=== PATIENT | male | born 1945 | race Caucasian/White ===

== ENCOUNTER 2018-06-03 22:55 | Inpatient (IN) ==
[2018-06-03] MEDS ORDERED: Heparin 10,000 UNITS/10 ML Vial (for IV use) IV.PUSH STA (23:03)
[2018-06-03] MEDS ORDERED: Sod Chloride 0.9% Inj 1,000 ML IV.SIG SCH (23:15)
[2018-06-03 23:19] LABS: Baso # (Auto) 0.1 th/mm3 (0.0-0.2); Baso % (Auto) 0.7 % (0.0-2.0); Eos # (Auto) 0.2 th/mm3 (0.0-0.4); Hematocrit 43.3 % (39.0-51.0); Hemoglobin 14.6 gm/dL (13.0-17.0); Lymph # (Auto) 3.5 th/mm3 (1.0-4.8); Lymph % (Auto) 40.3 % (9.0-44.0); Mean Corpuscular HGB Conc 33.8 % (32.0-36.0); Mean Corpuscular Hemoglobin 33.1 pg (27.0-34.0); Mean Corpuscular Volume 97.9 fL (80.0-100.0); Mean Platelet Volume 7.8 fL (7.0-11.0); Mono % (Auto) 11.5 % (0.0-8.0); Neut % (Auto) 45.5 % (16.0-70.0); Platelet Count 347 th/mm3 (150-450); Red Blood Count 4.42 mil/mm3 (4.50-5.90); Red Cell Distribution Width 14.2 % (11.6-17.2); White Blood Count 8.7 th/mm3 (4.0-11.0)
[2018-06-03] MEDS ORDERED: DOBUTAMINE 250 MG/20 ML IV.CONT ONE (23:19)
--- NOTE | 2018-06-03 23:25 | XR ---
EXAM DATE: 06/03/2018 11:21 PM EDT AGE/SEX: 72 years / Male INDICATIONS: Stemi alert CLINICAL DATA: This is the patient's initial encounter. Patient reports that signs and symptoms have been present for 1 day and indicates a pain score of Nonresponsive. MEDICAL/SURGICAL HISTORY: Non-responsive. Non-responsive. COMPARISON: No prior exams available for comparison. FINDINGS: A single AP view of the chest demonstrates the lungs to be symmetrically aerated without evidence of mass, infiltrate or effusion. The heart is normal size. Central bronchopulmonary markings are not eng orged.. Osseous structures are intact. CONCLUSION: The lungs are clear. Electronically signed by: Donnell Dale MD 06/03/2018 11:23 PM EDT
[2018-06-03] MEDS: Heparin Drip 25,000 UNIT/250 ML BAG IV.CONT PRN (23:27)
[2018-06-03] MEDS: DOBUTamine 250 MG/250 ML Premx 250 MG/250 ML BAG IV.CONT SCH (23:27)
[2018-06-03 23:28] LABS: Activated Partial Thrombo Time 23.1 sec (24.3-30.1); Prothrombin Time 10.1 sec (9.8-11.6)
[2018-06-03] MEDS ORDERED: Morphine Sulfate Inj 2 MG/ML Vial IV.PUSH ONE (23:32)
--- NOTE | 2018-06-03 23:38 | ED ---
HPI General Chief Complaint: Chest Pain Stated Complaint: Evac/cardiac Arrest Time Seen by Provider: 06/03/18 23:06 Source: patient and EMS Mode of arrival: EMS Limitations: altered mental status History of Present Illness HPI narrative: 72-year-old male patient presents to the ER today with complaints of substernal chest pains currently a 9 out of 10, apparently had called the ambulance because of the chest pain, was initially found to have V1 and V2 elevations, and initially was going to be called a STEMI alert but then the elevations were not initially impressive, and he was given aspirin. While he was on the ambulance, he went to V. fib arrest, had defibrillation done and became alert and had return of spontaneous vital signs and respirations, and refused to get intubated by EMS. He is currently awake and states that he is still having chest pains. He denies any significant medical issues in the past. He denies being on any blood thinners. A repeat EKG in the ER shows ST elevations in the anterolateral leads as well as depressions in the inferior leads. Case was discussed with Dr. Tim who agrees to take him to catheterization. STEMI alert had been called. Complete Quality Measures for STEMI Alert Patients Related Data Home Medications Medication Instructions Recorded Confirmed No Known Home Medications 06/03/18 06/03/18 Allergies Allergy/AdvReac Type Severity Reaction Status Date / Time No Known Allergies Allergy Unverified 06/03/18 23:03 Review of Systems ROS: all other systems reviewed are negative PMFSH History History Provided By: Patient Medical History Medical History Patient denies medical problems (Acute) Surgical History Surgical History No history of previous surgery (Acute) Exam Narrative Exam Narrative: GENERAL: Well-developed elderly white male patient currently in moderate distress. Awake and oriented 3. SKIN: Focused skin assessment warm/diaphoretic. HEAD: Atraumatic. Normocephalic. EYES: Pupils equal and round. No scleral icterus. No injection or drainage. ENT: No nasal bleeding or discharge. Mucous membranes pink and moist. NECK: Trachea midline. No JVD. CARDIOVASCULAR: Regular rate and rhythm. No murmur appreciated. Pulses are present and equal bilaterally. RESPIRATORY: No accessory muscle use. Clear to auscultation. Breath sounds equal bilaterally. GASTROINTESTINAL: Abdomen soft, non-tender, nondistended. Hepatic and splenic margins not palpable. MUSCULOSKELETAL: No obvious deformities. No clubbing. No cyanosis. No edema. NEUROLOGICAL: Awake and alert. No obvious cranial nerve deficits. Motor grossly within normal limits. Normal speech. PSYCHIATRIC: Appropriate mood and affect; insight and judgment normal. Course Initial Documented Vital Signs Temperature 98.0 F 06/03/18 23:00 Pulse Rate 96 H 06/03/18 23:00 Respiratory Rate 18 06/03/18 23:00 Blood Pressure 84/56 L 06/03/18 23:00 Pulse Oximetry 99 06/03/18 23:00 Last Documented Vital Signs Temperature 98.0 F 06/03/18 23:00 Pulse Rate 96 H 06/03/18 23:00 Respiratory Rate 18 06/03/18 23:00 Blood Pressure 84/56 L 06/03/18 23:00 Pulse Oximetry 98 06/03/18 23:15 Medical Decision Making MDM Narrative Medical decision making narrative: Patient's blood pressure was fairly low in the ER at 2 L IV fluid bolus was given. His blood pressure remained low after the 2 L boluses and dobutamine was given in the ER. Heparin protocol had been initiated and STEMI protocol had been initiated. Case has been discussed with Dr. Tim and case has been admitted to his service, Dr. Almendarez is planning for catheterization. I have discussed CODE STATUS with the patient and he agrees to be full code. I have also discussed the findings and current diagnosis with patient's who states understanding. Aggregate critical care time was 35 minutes. Time to perform other separately billable procedures was not included in the critical care time. My time did not include minutes spent treating any other patients simultaneously or on activities that did not directly contribute to the patient's treatment. The services I provided to this patient were to treat and/or prevent clinically significant deterioration that could result in: Cardiopulmonary arrest, V. fib arrest, I provided critical care services requiring my management, as noted below: Chart data review, documentation time, medication orders and management, vital sign assessments/reviewing monitor data, ordering and reviewing lab tests, ordering and interpreting/reviewing x-rays and diagnostic studies, care of the patient and discussion of the patient with the admitting physicians. Medical Screen Exam Complete: Yes Emergency Medical Condition: Yes Differential Diagnosis Differential Diagnosis: STEMI versus dysrhythmias versus electrolyte abnormalities Lab Data Result diagrams: 06/03/18 23:00 Lab Results 06/03/18 06/03/18 06/03/18 Range/Units 23:00 23:00 23:00 WBC 8.7 (4.0-11.0) th/mm3 RBC 4.42 L (4.50-5.90) mil/mm3 Hgb 14.6 (13.0-17.0) gm/dL POC Hgb (Calc) 14.3 (13.0-17.0) g/dL Hct 43.3 (39.0-51.0) % POC Hct 42.0 (39-51.0) % MCV 97.9 (80.0-100.0) fL MCH 33.1 (27.0-34.0) pg MCHC 33.8 (32.0-36.0) % RDW 14.2 (11.6-17.2) % Plt Count 347 (150-450) th/mm3 MPV 7.8 (7.0-11.0) fL Neut % (Auto) 45.5 (16.0-70.0) % Lymph % (Auto) 40.3 (9.0-44.0) % Hitchcock % (Auto) 11.5 H (0.0-8.0) % Eos % (Auto) 2.0 (0.0-4.0) % Baso % (Auto) 0.7 (0.0-2.0) % Neut # (Auto) 4.0 (1.8-7.7) th/mm3 Lymph # (Auto) 3.5 (1.0-4.8) th/mm3 Hitchcock # (Auto) 1.0 H (0.0-0.9) th/mm3 Eos # (Auto) 0.2 (0.0-0.4) th/mm3 Baso # (Auto) 0.1 (0.0-0.2) th/mm3 WBC Differential . Differential Comment Auto diff final PT 10.1 (9.8-11.6) sec INR 1.0 Ratio APTT 23.1 L (24.3-30.1) sec POC Sodium 140 (137-144) mmol/L POC Potassium 3.0 L (3.6-5.0) mmol/L POC Chloride 103 (102-111) mmol/L POC BUN 17 (5-21) mg/dL POC Creatinine 1.3 (0.6-1.3) mg/dL POC Glucose 167 H (68-110) mg/dL Calcium 8.8 (8.5-10.1) mg/dL Magnesium 2.2 (1.5-2.5) mg/dL Total Creatine Kinase 105 (39-308) U/L Troponin I 0.21 H (0.02-0.05) ng/mL Imaging Data Radiologist's impression: Chest X-Ray 06/03/18 23:04 CONCLUSION: The lungs are clear. Discharge Plan Discharge Disposition Patient Disposition: 30 Still Patient Discharge Condition Condition: Critical Discharge Details Anticipated Discharge Date: 06/03/[address]: [address] elevation myocardial infarction (STEMI) Physicians Team ED Provider: Robert Ferrari Primary Care Provider: UNKNOWN, Attending Provider: Brayden Tim Status ED Status: Admitted Patient
[2018-06-03 23:42] LABS: Calcium 8.8 mg/dL (8.5-10.1); Magnesium 2.2 mg/dL (1.5-2.5)
[2018-06-03] MEDS ORDERED: Heparin/NS PF Inj 1,000 ML ONE (23:43)
[2018-06-03 23:45] LABS: Creatine Kinase 105 U/L (39-308); Troponin I 0.21 ng/mL (0.02-0.05)
[2018-06-03] MEDS ORDERED: Iohexol 350 MG/ML 100 ML Vial (for Cath Lab) IVCONTRAST ONE (23:52)
[2018-06-03] MEDS ORDERED: Iohexol 350 MG/ML 50 ML Vial (for Cath Lab) IVCONTRAST ONE (23:52)
[2018-06-03 23:57] LABS: Creatine Kinase MB 2.6 ng/mL (0.5-3.6)
[2018-06-03] MEDS ORDERED: Potassium Chlor 10 mEq Premix 10 MEQ/100 ML PIGGYBACK IV.SIG ONE (23:58)
[2018-06-03] MEDS ORDERED: DOPamine 800 MG/500 ML Premix 800 MG/500 ML PLAST..BAG IV.CONT ONE (23:59)
[2018-06-04] MEDS ORDERED: Heparin Drip 25,000 UNIT/250 ML BAG IV.CONT ONE (00:17)
--- NOTE | 2018-06-04 00:57 | CATHPROC ---
[employer] HIS Report Study Information Study Number Admission Scheduled Start Study Start [id number] Jun 03 2018 10:55PM 06/03/2018 Jun 03 2018 11:35PM [facility]iac Catheterization Admit Source Facility Department Emergency department [facility] - Manufacture Specialist Physician and Clinical Staff Initial Brayden Cheung [place] Operator Serg Pillai,RN [place] Operator Kate Clifton,JENNI Recorder Leora Green,RT(R) Scrub Blair ValdovinosRT(R) Procedures Performed Procedure Location (Site) Vessel Name Angiogram LV LV Ventricle Coronary Angiograms LCA Left Coronary Coronary Angiograms RCA Right Coronary IABP Fem Art (right) Femoral Art L Heart Cath Equipment Time Anatomy Teacher Description Size Mfg Part Number Used/Scraped TRANSDUCER, TRVERNON [id number] 23:42 Oree * Used W/STOCKCOCK *[id number] *[id number] [id number] *[id number] [id number] *[id number] BALLOON, FR8 50CC SENSATION [id number] 00:15 MAQUET FR 8 50CC Used PLUS 01U *[id number] 23:42 [employer] BLANKET,WARM AIR CCL * Used *[id number] 23:42 [employer] PACK, CCL CUSTOM * Used *[id number] 23:42 [employer] PACER PEN, SKIN DUAL W/ RULER * Used *[id number] 23:42 [employer] MEDICAL SHEATH, FR6.5 PRELUDE 11CM FR 6.5 038ACT Used *[id number]- 00:21 [employer] MEDICAL SHEATH, FR6.5 PRELUDE 11CM FR 6.5 038ACT Used *[id number] 23:42 [employer] MEDICAL WIRE, 3MMJ .035 180CM 180CM Used *[id number] 23:42 NAMIC MANIFOLD, 4 PORT * Used *[id number] 23:42 [employer] OMNIPAQUE, 350 MG, 150ML 150ML [id number] Used 00:23 [employer] OMNIPAQUE, 350 MG, 50ML 50ML [id number] Used History: Allergies Allergy Reaction No Known Allergies History: Symptoms/Diagnosis Selection Items Chest pain History: Stress Tests Stress or Imaging Studies Performed No Labs Hgb (g/dl) Hct (%) WBC (l/cumm) Platelets (thousands) 11.60-17.00 35.00-51.00 4.00-11.00 150.00-450.00 14.6 43.3 8.7 347 Glucose (mg/dl) BUN (mg/dl) Creatinine (mg/dl) BUN:Creatinine (1:x) 74.00-106.00 7.00-18.00 0.50-1.30 10.00-20.00 167 17 1.3 13.1 Na (meq/l) K (meq/l) 136.00-145.00 3.50-5.10 140 3 INR (PTT:PT) 0.90-1.10 1 Medication Medication Total Dose (Bolus/Oral) Medication Total Dosage/Unit 1% XYLOCAINE 40 mL AMIODARONE 150 mg HEPARIN 5000 units POTASSIUM CHLORIDE 40 meq ZOFRAN 8 mg Medications (Bolus/Oral) Medication Time Given Dosage/Unit Administered By Reason ZOFRAN 06/03/2018 11:57:00 PM 4 mg HesKate izaguirre 4 mg ZOFRAN given in lab by Kate Clifton RN in Left Antecubital via Central IV. Ordered by Brayden Tim. 1% XYLOCAINE 06/04/2018 12:04:09 AM 20 mL Brayden Tim 20 mL 1% XYLOCAINE given in lab by Brayden Tim in Right Groin via Subcutaneous. POTASSIUM CHLORIDE 06/04/2018 12:10:19 AM 40 meq Kate Clifton 40 meq POTASSIUM CHLORIDE given in lab by Kate Clifton, JENNI in Left Antecubital via Peripheral IV. O rdered by Brayden Tim. HEPARIN 06/04/2018 12:16:11 AM 5000 units Kate Clifton 5000 units HEPARIN given in lab by Kate Clifton, JENNI in Left Antecubital via Peripheral IV. Ordered by Brayden Tim. ZOFRAN 06/04/2018 12:18:07 AM 4 mg Hes, Kate 4 mg ZOFRAN given in lab by Kate Clifton, JENNI in Left Antecubital via Central IV. Ordered by Brayden Tim. 1% XYLOCAINE 06/04/2018 12:18:31 AM 20 mL Brayden Tim 20 mL 1% XYLOCAINE given in lab by Brayden Tim in Left Groin via Subcutaneous. AMIODARONE 06/04/2018 12:24:18 AM 150 mg Kate Clifton 150 mg AMIODARONE given in lab by Kate Clifton, JENNI in Left Antecubital via Peripheral IV. Ordered b Brayden Mckinney. Medication (Drip) Medication Time Given Dosage/Unit Concentration/Unit Diluent (ml) Solution DOBUTAMINE 06/03/2018 11:55:36 PM 10 mcg/kg/min 500 mg 250 D5W Patient arrived on 10 mcg/kg/min DOBUTAMINE in Right Forearm via Peripheral IV. Pump/Drip Flow = 21.7 5 ml/hr using D5W with a concentration of 500 mg in 250 ml. HEPARIN DRIP 06/04/2018 12:25:39 AM 1000 units/hr 36426 units 250 D5W 1000 units/hr HEPARIN DRIP given in lab by Kate Clifton, JENNI in Left Antecubital via Peripheral IV. Pump/Drip Flow = 10 ml/hr [place] D5[place] [address] units in 250 ml. Ordered by Brayden Tim. IV Solutions 06/03/2018 11:53:37 PM 50 mL (IV) NaCl .9 Patient arrived on IV Solutions in Left Antecubital via Peripheral IV. Pump/Drip Flow using NaCl .9. POTASSIUM DRIP 06/04/2018 12:38:45 AM 5 meq/hr 10 meq 100 D5W .9 NaCl 5 meq/hr POTASSIUM DRIP given in lab by Kate Clifton, JENNI in Right Forearm via Peripheral IV. Pump/D rip Flow = 50 ml/hr using D5W .9 NaCl with a concentration of 10 meq in 100 ml. Ordered by Brayden Tim. Chronological Log Time Study Chronological Log 23:40:56 Emergency Room notified that Manufacture Specialist is ready. 23:49:28 MD arrived. 23:52:16 Patient arrived via Bed. 23:53:22 Patient Name, D.O.B, / Armband Verified By R.N. 23:53:23 Consent signed by the physician and the patient and verified by the Manufacture Specialist staff. 23:53:31 Patient Warmer Placed on the Table. 23:53:33 Disposable Defibrillator Pads Placed On Patient. 23:53:33 Rito Prominences Protected 23:53:35 A # ~SIZE~ IV was noted in the Forearm (right). Grade = ~GRADE~ 23:53:36 A # ~SIZE~ IV was noted in the Antecubital (left). Grade = ~GRADE~ 23:53:37 Patient arrived on IV Solutions in Left Antecubital via Peripheral IV. Pump/Drip Flow usi ng NaCl .9. 23:53:38 History and physical on the chart or being dictated. Patient arrived on 10 mcg/kg/min DOBUTAMINE in Right Forearm via Peripheral IV. Pump/Drip Jose w = 21.75 ml/hr 23:55:36 using D5W with a concentration of 500 mg in 250 ml. Vitals capture started with the following parameters, Patient=Adult, Interval=3 min, Initial Watcjwgo=180 mmHg, 23:56:11 Deflation Rate=5 mmHg, Cuff placed on Left Arm 23:57:00 4 mg ZOFRAN given in lab by Kate Clifton, JENNI in Left Antecubital via Central IV. Ordere d by Brayden Tim. 23:57:29 ZB=728 bpm, NIBP=93/58 mmhg, SpO2=97.0 %, Resp=17 B/min 23:59:40 HR=90 bpm, NIBP=93/57 mmhg, PqD0=176.0 %, Resp=18 B/min 0:00:20 Reference ECG taken 0:01:47 Reference ECG taken 0:02:41 RP=420 bpm, NIBP=90/56 mmhg, TlT5=620.0 %, Resp=18 B/min 0:03:37 Pressure channel 1 zeroed. 0:04:07 Case Start 0:04:09 20 mL 1% XYLOCAINE given in lab by Brayden Tim in Right Groin via Subcutaneous. 0:05:09 Access site was Right Femoral Artery. 0:05:23 A SHEATH, FR6.5 PRELUDE 11CM FR 6.5 was advanced into the Fem Art (right) using the Percutan eous technique. 0:05:39 HR=85 bpm, NIBP=99/66 mmhg, SpO2=99.0 %, Resp=17 B/min A JL 4.0 INFINITI CATHETER FR 6 was advanced over a wire. OMNIPAQUE, 350 MG, 150ML 150ML was use d for 0:05:41 injections. 0:06:32 The LCA was injected and visualized at various angles. OMNIPAQUE, 350 MG, 150ML 150ML used. Recorded Pressure: Ao, HR=78, Condition=Condition 1 0:06:49 (Aorta) Ao 82/47/62 0:08:00 Catheter was removed A 3DRC INFINITI CATHETER FR 5 was advanced over a wire. OMNIPAQUE, 350 MG, 150ML 150ML was used for 0:08:21 injections. 0:08:43 HR=95 bpm, NIBP=94/56 mmhg, KrJ9=452 %, Resp=19 B/min 0:09:26 The RCA was injected and visualized at various angles. OMNIPAQUE, 350 MG, 150ML 150ML used. 40 meq POTASSIUM CHLORIDE given in lab by Kate Clifton, JENNI in Left Antecubital via Peripheral IV. Ordered by 0:10:19 Brayden Tim. 0:11:36 Catheter was removed 0:11:43 ZM=136 bpm, NIBP=81/42 mmhg, QjM3=109 %, Resp=18 B/min 0:12:53 Activated Clotting Time Drawn 0:13:00 Sheath exchanged for intra-aortic balloon insertion. An BALLOON, FR8 50CC SENSATION PLUS FR 8 50CC was advanced to the descending aorta. Proper place ment was 0:14:10 confired under fluoroscopy and the balloon was sutured in place. Ratio = 1. Augmented BP 88/47 0:14:38 HR=89 bpm, NIBP=88/54 mmhg, FfB2=602.0 %, Resp=17 B/min 0:15:57 ACT (Normal Range 90-180) = 156 0:16:11 5000 units HEPARIN given in lab by Kate Clifton, JENNI in Left Antecubital via Peripheral IV. Ordered by Brayden Tim. 0:16:41 Balloon pump on 0:18:07 4 mg ZOFRAN given in lab by Kate Clifton, JENNI in Left Antecubital via Central IV. Ordered b Brayden Mckinney. 0:18:13 HR=94 bpm, DWCV=947/52 mmhg, SpO2=96.0 %, Resp=14 B/min 0:18:31 20 mL 1% XYLOCAINE given in lab by Brayden Tim in Left Groin via Subcutaneous. 0:19:25 Access site was Left Femoral Artery. 0:20:44 HR=86 bpm, ZVNF=376/59 mmhg, SpO2=95.0 %, Resp=19 B/min 0:20:44 A SHEATH, FR6.5 PRELUDE 11CM FR 6.5 was advanced into the Fem Art (right) using the Percutan eous technique. A PIGTAIL STR INFINITI CATHETER FR 6 was advanced over a wire. OMNIPAQUE, 350 MG, 150ML 150ML wa s used for 0:20:50 injections. Recorded Pressure: LV, WK=047, Condition=Condition 1 0:21:01 (Left Ventricle) LV 87/5/35 0:22:52 The LV was injected at 12 cc/sec for a total of 35. OMNIPAQUE, 350 MG, 50ML 50ML used. Recorded Pressure: LV, Ao, DK=012, Condition=Condition 1 0:23:16 (Left Ventricle) LV 92/9/34, (Aorta) Ao 113/44/79 0:23:44 DW=570 bpm, YWBW=492/64 mmhg, SpO2=94.0 %, Resp=19 B/min 0:24:08 Catheter was removed 150 mg AMIODARONE given in lab by Kate Clifton, RN in Left Antecubital via Peripheral IV. Orde red by Meeta, 0:24:18 Brayden. 1000 units/hr HEPARIN DRIP given in lab by Kate Clifton, RN in Left Antecubital via Peripheral IV. Pump/Drip Flow = 0:25:39 10 ml/hr [place] [address] units in 250 ml. Ordered by Brayden Tim. 0:25:39 Case End (Physician broke scrub) 0:26:47 DC=319 bpm, YNWY=828/63 mmhg, SpO2=90.0 %, Resp=14 B/min 0:29:45 MJ=874 bpm, NIBP=93/63 mmhg, SpO2=93.0 %, Resp=15 B/min 0:32:45 HR=93 bpm, NIBP=81/35 mmhg, SpO2=90 %, Resp=14 B/min 0:36:06 HR=93 bpm, TYTX=955/77 mmhg, SpO2=92.0 %, Resp=17 B/min 0:38:23 A # 20 IV was noted in the Forearm (right). Grade = 0 Placed in lab by Kate Clifton RN 5 meq/hr POTASSIUM DRIP given in lab by Kate Clifton, RN in Right Forearm via Peripheral IV. Pump/Drip Flow = 0:38:45 50 ml/hr using D5W .9 NaCl with a concentration of 10 meq in 100 ml. Ordered by Brayden Tim. 0:38:46 HR=96 bpm, ODEO=709/77 mmhg, SpO2=93.0 %, Resp=19 B/min 0:41:46 LU=216 bpm, VUKO=479/71 mmhg, SpO2=92 %, Resp=18 B/min 0:44:46 UK=126 bpm, ARHF=512/68 mmhg, SpO2=91.0 %, Resp=16 B/min 0:47:15 Vitals capture stopped. 0:47:25 In the Fem Art (right) the sheath was sutured in place by Brayden Tim. balloon pump sheat h 0:47:40 In the Fem Art (left) the SHEATH, FR6.5 PRELUDE 11CM FR 6.[address] by Brayden Tim. 0:47:49 Sterile dressing applied to site 0:47:50 No case complications noted. 0:47:51 Cine recording checked. 0:47:54 Bedside Report will be given. 0:48:05 Report called to floor. 0:48:08 A Left Heart Cath was performed. 0:53:00 Patient moved to stretcher End Study - Contrast Media Used In Study Contrast Total Opened (mL) Total Used (mL) Total Wasted (mL) Omnipaque 200 135 65 End Study - Maximum Contrast Load Max Contrast Load (mL) 278.8 End Study - Radiation Exposure Fluoro Time (minutes) 1.7 End Study - Patient Disposition Complications Transferred To Interventional Outcome No Telemetry Bed successful
[2018-06-04] MEDS ORDERED: Heparin 10,000 UNITS/10 ML Vial (for IV use) ONE ×2 (01:15→21:54)
--- NOTE | 2018-06-04 01:19 | MA ---
cc: Brayden Tim MD DATE: 06/03/2018 PROCEDURE: Emergency left heart catheterization, selective coronary angiography, left ventriculography, placement of an intraaortic balloon pump. PROCEDURE NOTE: The patient was brought to the cardiac catheterization laboratory under emergency conditions in the midst of an acute anterior and lateral ST-elevation myocardial infarction. The right groin was prepped and draped as per policy and anesthetized with 1% lidocaine. Arterial access was obtained via the right femoral artery and a 6-Canadian sheath placed. Coronary arteriography was performed using 6-Canadian Anya, left 4.0, and right progressive catheters. Left ventriculography was done using a standard 6-Canadian pigtail. Placement of an intraaortic balloon pump was done as described below. There were no apparent immediate complications. HEMODYNAMIC DATA: Left ventricle 92 with an end diastolic pressure of 25, aorta 113/44 with a mean of 79. There was no significant transvalvular aortic gradient on pullback of the pigtail catheter. CORONARY ARTERIOGRAPHY: The left main has up to 50% distal stenosis. The left anterior descending is a medium-size vessel with 80%-90% proximal stenosis. In the mid-LAD, there is up to 50% stenosis. The distal LAD has minimal luminal irregularities. The LAD gives rise to a very small caliber diagonal which has up to 60% proximal stenosis. The left circumflex is a moderate-sized vessel giving rise to a large first obtuse marginal which has 75% ostial stenosis and a medium sized second obtuse marginal which has 60% ostial stenosis. The right coronary artery is a very large dominant vessel which is diffusely diseased. There is likely up to 40% mid stenosis and 20% disease in the proximal and distal portions. LEFT VENTRICULOGRAPHY: Contrast injection of the left ventricle reveals severe hypokinesis of most of the anterior wall and apex. Ejection fraction is roughly estimated at 25%-30%. INTRAAORTIC BALLOON PUMP PLACEMENT: As the patient continued to have severe chest pain and because he continued to have salvos of ventricular arrhythmias, it was decided to place an intraaortic balloon pump. The preexisting 6-Canadian sheath was exchanged for a balloon pump sheath. Through this sheath, an intraaortic balloon pump was introduced and its tip positioned in the aortic knob where good diastolic augmentation was demonstrated. CONCLUSIONS: 1. At least moderate left main disease. 2. Severe disease of the proximal LAD and ostial first obtuse marginal. 3. Severely reduced left ventricular systolic function with estimated ejection fraction of 25%-30%. 4. Status post placement of an intraaortic balloon pump. DISCUSSION: The patient will be referred for bypass surgery. Bypass grafts could be placed to the LAD, first obtuse marginal, second obtuse marginal, possibly diagonal. Of note, after placement of the intraaortic balloon pump, the patient's severe chest pain and ventricular arrhythmias completely resolved. MD FAMILIA Mike/zuri , 12:33 AM , 12:40 AM [email or web address]
--- NOTE | 2018-06-04 01:20 | MB ---
cc: Brayden Tim MD DATE: 06/04/2018 REASON FOR CONSULTATION: Status post cardiac arrest, ST elevation myocardial infarction. HISTORY OF PRESENT ILLNESS: The patient is a 72-year-old white male with basically no major past medical history, who was in his usual state of health up until about an hour prior to presentation when he began to experience fairly severe substernal chest pressure associated with nausea and vomiting. He called the emergency ambulance services and en route to the hospital, he developed reportedly Torsades necessitating shock therapy with lutheran of sinus rhythm. In the emergency department, he was found to have EKG evidence for ST elevation myocardial infarction, so he was called as a STEMI alert. The patient continues to have severe substernal chest discomfort without associated shortness of breath. He continues to have nausea and vomiting. He denies lightheadedness, syncope, near syncope, palpitations, pedal edema, paroxysmal nocturnal dyspnea, prior episodes of chest pain. PAST MEDICAL HISTORY: None. PAST SURGICAL HISTORY: Knee surgery. MEDICATIONS AT HOME: None. ALLERGIES: NO KNOWN DRUG ALLERGIES. FAMILY HISTORY: Noncontributory. There is no family history of early myocardial infarction. SOCIAL HISTORY: The patient denies any history of alcohol or tobacco abuse. REVIEW OF SYSTEMS: As in the history of present illness, otherwise negative or noncontributory. He also denies headache, abdominal pain, melena, dyspepsia, bright red blood per rectum. PHYSICAL EXAMINATION: VITAL SIGNS: Blood pressure 84/56 with a pulse of 90, respirations 20. GENERAL: He is a well-developed, well-nourished white male, in no acute distress. NECK: Jugular venous pressure is normal. Carotid pulses are 2+ bilaterally and without bruits. CHEST: Reveals clear lung kline. CARDIAC: He has a regular rhythm and rate with a grade 1/6 systolic murmur heard at the base of the heart. The S2 heart sound is normal. No gallop is audible. ABDOMEN: He has a soft, nontender abdomen. Bowel sounds are present. There is no definite hepatosplenomegaly. EXTREMITIES: Reveals no clubbing, cyanosis or edema. Peripheral pulses are normal throughout. DIAGNOSTIC DATA: EKG shows normal sinus rhythm, anteroseptal and high lateral ST elevation with reciprocal changes consistent with acute injury pattern. Chest x-ray shows no acute disease. LABORATORY DATA: Includes normal CBC. Potassium 3.0, BUN 17, creatinine 1.3. Troponin 0.21, CK 105. IMPRESSION: Acute ST elevation myocardial infarction, cardiac arrest, in a 72-year-old white male with no major past medical history. At this time, he continues to have ongoing chest pain and marked ST changes on the monitor. In addition, he sustained a ventricular tachyarrhythmia arrest en route to the hospital, reportedly with Torsades de Pointes morphology. Magnesium level is normal (2.2). Because of the instability of his symptoms, abnormal EKG, ventricular arrhythmia, he has been recommended emergency cardiac catheterization with possible percutaneous coronary intervention, the risks of which have been explained to him including, but not limited to , myocardial infarction, stroke, arrhythmia, bleeding, infection, and renal failure. He agrees to proceed. RECOMMENDATIONS: 1. Emergency cardiac catheterization. 2. No beta-mario alberto or SHIRLEY inhibitor at this time with his low blood pressures. 3. Continue aspirin and heparin. 4. Check a fasting lipid profile. MD FAMILIA Mike/ramon , 12:40 AM , 12:48 AM [email or web address]
--- NOTE | 2018-06-04 02:44 | XR ---
EXAM DATE: 06/04/2018 2:21 AM EDT AGE/SEX: 72 years / Male INDICATIONS: Short of breath. CLINICAL DATA: This is the patient's subsequent encounter. Patient reports that signs and symptoms h ave been present for 2 days and indicates a pain score of Nonresponsive. MEDICAL/SURGICAL HISTORY: Non-responsive. Non-responsive. COMPARISON: [facility] [place], CHEST 1V SINGLE AP, 06/03/2018. . FINDINGS: The heart is normal in size. There is mild indistinctness of the central bronchopulmonary markings wi thout peribronchial thickening. The appearance is nonspecific but suggests the possibility of pulmona ry venous hypertension. Both hemidiaphragms are well delineated. There is an asymmetric appearance to the medial right pulmonary apex which could be due to asymmetric positioning of the upper extremitie s; however, a right apical mass cannot be excluded. CONCLUSION: 1. Indistinctness of the central bronchopulmonary markings suggest possible pulmonary venous hyperte nsion. 2. Equivocal findings suggesting the possibility of a right apical mass; recommend further character ization with noncontrast CT thorax. Electronically signed by: Donnell Dale MD 06/04/2018 2:43 AM EDT
[2018-06-04] MEDS ORDERED: Potassium Chlor 20 mEq Premix 20 MEQ/100 ML PIGGYBACK IV.SIG ONE (03:30)
[2018-06-04] MEDS: Heparin Drip 25,000 UNIT/250 ML BAG IV.CONT PRN ×2 (04:00→23:12)
[2018-06-04] MEDS: Sod Chloride 0.9% Inj 1,000 ML IV.CONT SCH ×2 (04:03→12:06)
[2018-06-04 04:30] LABS: Baso % (Auto) 0.1 % (0.0-2.0); Eos % (Auto) 0.1 % (0.0-4.0); Hematocrit 40.8 % (39.0-51.0); Hemoglobin 13.5 gm/dL (13.0-17.0); Lymph # (Auto) 0.6 th/mm3 (1.0-4.8); Lymph % (Auto) 4.4 % (9.0-44.0); Mean Corpuscular Hemoglobin 32.3 pg (27.0-34.0); Mean Corpuscular Volume 97.8 fL (80.0-100.0); Mean Platelet Volume 8.3 fL (7.0-11.0); Mono # (Auto) 0.9 th/mm3 (0.0-0.9); Mono % (Auto) 5.8 % (0.0-8.0); Neut # (Auto) 13.2 th/mm3 (1.8-7.7); Neut % (Auto) 89.6 % (16.0-70.0); Platelet Count 298 th/mm3 (150-450); Red Blood Count 4.17 mil/mm3 (4.50-5.90); Red Cell Distribution Width 14.5 % (11.6-17.2); White Blood Count 14.7 th/mm3 (4.0-11.0)
--- NOTE | 2018-06-04 04:42 | P.HPCC ---
History of Present Illness Service: Critical care medicine Primary Care Physician: UNKNOWN Chief Complaint: chest pain History of Present Illness: This is a 72-year-old male with a relatively unremarkable past medical history who is active and was in his usual state of health when he had sudden onset crushing substernal chest pain radiating to his left shoulder around 6 PM tonight. EMS was called. In the ambulance, he had a V. fib arrest and was emergently defibrillated. He was not intubated at that time and mental status returned to baseline. In the emergency department he was found to have an ST elevation myocardial infarction. He was emergently taken to the [facility]. He has multivessel disease with essentially left main equivalent with severe distal left main disease, 90% proximal LAD disease, 70-80% circumflex disease, and moderate RCA disease. He has an acute EF of 25-30% by left ventriculography. Decision was made to forego intervening on the lesions and placed intra-arterial balloon pump in favor of cardiothoracic surgical evaluation. I evaluated the patient on arrival to the CVICU. He is awake and alert. He states that his chest pain is significantly improved from precatheterization. He does state that his chest is sore from the short round of CPR he received in the ambulance. He is on a dopamine infusion at 8 mcg/kg/ min on my evaluation. IVP is 1:1. Augmented mean arterial pressures 111 mmHg. He does endorse mild nausea. Denies vomiting, diarrhea, abdominal pain. Denies fever, chills, cough, new sputum production. He states that he can walk 2-3 blocks without getting winded. He does state the climbing 2 flights of stairs would make him significantly short of breath. He has a remote history of smoking when he was a teenager, does drink 2-3 drinks a week. His only family history of coronary artery disease was his grandmother who he said may have had a heart attack when she was very old. Remainder of review systems is negative. Inpatient Certification: I certify that the inpatient services were ordered in accordance with Medicare regulations governing the order. This includes certification that hospital inpatient services are reasonable and necessary and in the case of services not specified as inpatient-only under 42 CFR 419.22(n), that they are appropriately provided as inpatient services in accordance to with the 2-midnight benchmark under 43 CFR 412.3(e) Estimated Total Length of Stay (Days): 7 Plans for Post Hospital Care: Home [facility] - History History Provided By: Patient, Family Member - Medical History Medical History: Medical History (Last Updated 06/04/18 @ 04:36 by Joaquín Burns MD) Meniscal injury Meniscal injury Patient denies medical problems - Surgical History Surgical History: Surgical History (Last Reviewed 06/04/18 @ 04:35 by Joaquín Burns MD) No history of previous surgery - Tobacco History Second Hand Smoke Exposure: No Smoking Status: Never smoker - Alcohol History How Often Do You Have a Drink Containing Alcohol: 2 to 4 times a month - Substance Use History Substance History: No History of Abuse Medications and Allergies Active Medications: Active Medications Aspirin (Aspirin Chew) 81 mg PO DAILY [facility] Atorvastatin Calcium (Lipitor) 40 mg PO HS [facility] Sodium Chloride (Ns Inj) 1,000 mls @ 30 mls/hr IV.SIG .Q24H [facility] Stop: 06/04/18 23:14 Last Admin: 06/03/18 23:24 Dose: 30 mls/hr Dobutamine HCl/Dextrose (Dobutamine 250 Mg/250 Ml Premx) 250 mg in 250 mls @ 10.886 mls/hr IV.CONT .[id number] [facility] Last Admin: 06/03/18 23:27 Dose: 10 mcg/kg/min, 43.55 mls/hr Heparin Sodium/Dextrose (Heparin/D5w 25,000 U/250 Ml) 25,000 unit in 250 mls @ 0 mls/hr IV.CONT TITRATE PRN; Protocol PRN Reason: Per Protocol Last Admin: 06/04/18 04:00 Dose: 900 units/hr, 9 mls/hr Sodium Chloride (Ns Inj) 1,000 mls @ 100 mls/hr IV.CONT .Q10H [facility] Stop: 06/04/18 12:44 Last Admin: 06/04/18 04:03 Dose: Not Given Amiodarone HCl 450 mg/ (Dextrose) 250 mls @ 33.33 mls/hr IV.CONT TITRATE PRN; Protocol PRN Reason: Per Protocol Potassium Chloride (Kcl 20 Meq Premix Inj) 20 meq in 100 mls @ 50 mls/hr IV.SIG ONCE ONE Stop: 06/04/18 05:29 Potassium Chloride (Kcl 20 Meq Premix Inj) 20 meq in 100 mls @ 50 mls/hr IV.SIG Q2H SUZIE Stop: 06/04/18 11:29 Sodium Chloride (Ns Flush) 2 ml IV.FLUSH PRN PRN PRN Reason: FLUSH AFTER USING IV ACCESS Sodium Chloride (Ns Flush) 2 ml IV.FLUSH BID SUZIE Allergies Allergy/AdvReac Type Severity Reaction Status Date / Time No Known Allergies Allergy Unverified 06/03/18 23:03 Home Medications Medication Instructions Recorded Confirmed Type No Known Home Medications 06/03/18 06/03/18 History Results - Labs CBC & Chem 7: 06/03/18 23:00 06/04/18 02:58 Labs: Short CBC 06/03/18 Range/Units 23:00 WBC 8.7 (4.0-11.0) th/mm3 Hgb 14.6 (13.0-17.0) gm/dL Hct 43.3 (39.0-51.0) % Plt Count 347 (150-450) th/mm3 BMP 06/03/18 23:00 Calcium 8.8 Cardiac Enzymes 06/03/18 Range/Units 23:00 Total Creatine Kinase 105 (39-308) U/L CK-MB (CK-2) 2.6 (0.5-3.6) ng/mL Troponin I 0.21 H (0.02-0.05) ng/mL - Imaging Impressions Chest X-Ray 06/03/18 23:04 CONCLUSION: The lungs are clear. Chest X-Ray 06/04/18 02:01 CONCLUSION: 1. Indistinctness of the central bronchopulmonary markings suggest possible pulmonary venous hypertension. 2. Equivocal findings suggesting the possibility of a right apical mass; recommend further characterization with noncontrast CT thorax. Exam Vital signs: Vital Signs 06/03/18 23:00 06/03/18 23:10 06/03/18 23:15 Temperature 36.7 C Pulse Rate 96 H 94 H Respiratory Rate 18 25 H Blood Pressure 84/56 L 73/52 L Pulse Oximetry 99 100 98 06/03/18 23:20 06/03/18 23:25 06/03/18 23:30 Temperature Pulse Rate 90 88 80 Respiratory Rate 22 Blood Pressure 63/46 L 66/45 L 88/53 L Pulse Oximetry 100 100 100 06/03/18 23:35 06/03/18 23:39 06/03/18 23:45 Temperature Pulse Rate 90 91 H 80 Respiratory Rate Blood Pressure 88/53 L 87/51 L 84/53 L Pulse Oximetry 100 100 99 06/04/18 01:00 06/04/18 02:34 06/04/18 03:17 Temperature 36.9 C Pulse Rate 92 H Respiratory Rate 18 Blood Pressure 105/63 Pulse Oximetry 91 L 94 L 97 Intake & Output 06/03/18 06/03/18 06/04/18 06:59 18:59 06:59 Intake Total 250 / 250 Balance 250 / 250 Weight 72.575 kg Intake: IV 250 / 250 Heparin/D5W 25,000 U/250 mL 25, 250 / 250 000 unit In 250 ml @ Per Protocol IV.CONT TITRATE PRN Rx #:[id number] Narrative: GENERAL: Elderly male, lying in bed, lying flat HEENT: Normocephalic. Atraumatic. Pupils equal, round, reactive, conjugate. Mucous membranes are moist NECK: Trachea is midline. There is no JVD. CHEST: Mildly labored. Mildly tachypneic. Facemask oxygen 8 L/min. SPO2 92%. CARDIOVASCULAR: Normal rate, regular rhythm. Sinus. Dopamine at 8 mcg/kg/min. Augmented mean arterial pressure 111 mmHg. Intra-arterial balloon pump is one -to-one. ABDOMEN: Soft, nontender, nondistended. No guarding. MUSCULOSKELETAL: Pulses 2+. No peripheral edema. Intra-arterial balloon pump is in the right groin, site is clear of hemorrhage or hematoma, dressing intact. Arterial sheath in the left groin, no hematoma or bleeding, dressing intact. NEUROLOGICAL: RASS 0 to -1. Moves all extremities. Follow commands. No focal deficits. Caprini VTE Risk Assessment Caprini VTE Risk Assessment: Moderate/High Risk (score >= 2) Caprini Risk Assessment Model: Point Value = 1 Point Value = 2 Point Value = 3 Point Value = 5 Age 41-60 Minor surgery BMI > 25 kg/m2 Swollen legs Varicose veins or History of unexplained or recurrent spontaneous Oral contraceptives or hormone replacement Sepsis (< 1 month) Serious lung disease, including pneumonia (< 1 month) Abnormal pulmonary function Acute myocardial infarction Congestive heart failure (< 1 month) History of inflammatory bowel disease Medical patient at bed rest Age 61-74 Arthroscopic surgery Major open surgery (> 45 min) Laparoscopic surgery (> 45 min) Malignancy Confined to bed (> 72 hours) Immobilizing plaster cast Central venous access Age >= 75 History of VTE Family history of VTE Factor V Leiden Prothrombin [id number] Lupus anticoagulant Anticardiolipin antibodies Elevated serum homocysteine Heparin-induced thrombocytopenia Other congenital or acquired thrombophilia Stroke (< 1 month) Elective arthroplasty Hip, pelvis, or leg fracture Acute spinal cord injury (< 1 month) Prophylaxis Regimen: Total Risk Factor Score Risk Level Prophylaxis Regimen 0-1 Low Early ambulation 2 Moderate Order ONE of the following: *Sequential Compression Device (SCD) *Heparin 5000 units SQ BID 3-4 Higher Order ONE of the following medications: *Heparin 5000 units SQ TID *Enoxaparin/Lovenox 40 mg SQ daily (WT < 150 kg, CrCl > 30 mL/min) *Enoxaparin/Lovenox 30 mg SQ daily (WT < 150 kg, CrCl > 10-29 mL/min) *Enoxaparin/Lovenox 30 mg SQ BID (WT < 150 kg, CrCl > 30 mL/min) AND/OR *Sequential Compression Device (SCD) 5 or more Highest Order ONE of the following medications: *Heparin 5000 units SQ TID (Preferred with Epidurals) *Enoxaparin/Lovenox 40 mg SQ daily (WT < 150 kg, CrCl > 30 mL/min) *Enoxaparin/Lovenox 30 mg SQ daily (WT < 150 kg, CrCl > 10-29 mL/min) *Enoxaparin/Lovenox 30 mg SQ BID (WT < 150 kg, CrCl > 30 mL/min) AND *Sequential Compression Device (SCD) Assessment and Plan - Assessment and Plan Plan: Assessment: 72-year-old male with ST elevation myocardial infarction and new diagnosis of multivessel disease with left main equivalent high risk coronary artery lesions. Agree with CT surgery consultation for urgent revascularization. Keep IABP 1-1. Very low threshold to start nitroglycerin for any chest pain. Keep Zoll pads on the patient and monitor closely on telemetry and treat for any malignant dysrhythmias. Critically ill and high risk for sudden cardiac . Active problems: ST elevation myocardial infarction Acute coronary syndrome Multivessel coronary artery disease Left main equivalent high risk coronary artery lesions Active coronary ischemia Out of hospital V. fib cardiac arrest Acute hypoxemia Plan: Continue heparin drip Continue dopamine for augmented mean greater than 90 Continue intra-arterial balloon pump one-to-one CT surgery consultation for urgent revascularization Continue to lie flat with mild reverse Trendelenburg Wean oxygen for goal SPO2 greater than 94% As needed nebs A.m. chest x-ray CBC, BMP, mag, fossa in the morning ICU electrolyte protocol Aspirin Statin Cardiology asked to continue to follow Very low threshold for nitroglycerin for any chest pain Keep on telemetry Zoll pads in place N.p.o. From my standpoint cleared for urgent coronary artery revascularization if deemed necessary by CT surgery. It appears the patient is optimized as he is going to be at this time. SCDs Pepcid Admit ICU. Critically ill. This patient remains critically ill with one or more organ systems which are or may become a threat to life. I have spent in excess of 44 minutes discontinuously in the care and management of this patient. This time is exclusive of procedures, and includes, but is not limited to, evaluation of the patient, review of the medical record, discussions with family, consultants, nursing staff, or respiratory therapy, and documentation in the medical record. H&P: Quality - VTE Deep Vein Thrombosis/Pulmonary Embolism Present on Admission: No
[2018-06-04] MEDS ORDERED: Metoprolol Tartrate 25 MG Tablet PO SCH (05:00)
[2018-06-04 05:04] LABS: Calcium 7.3 mg/dL (8.5-10.1); Carbon Dioxide 23.2 meq/L (21.0-32.0); Chol/HDL Ratio 3.33 Ratio; HDL Cholesterol 44.4 mg/dL (40.0-60.0); Magnesium 1.6 mg/dL (1.5-2.5); Potassium 3.6 meq/L (3.5-5.1)
[2018-06-04 05:11] LABS: Troponin I 10.4 ng/mL (0.02-0.05)
[2018-06-04 05:50] LABS: Creatine Kinase MB 110.7 ng/mL (0.5-3.6); Total Protein 5.7 g/dL (6.4-8.2)
[2018-06-04 05:54] LABS: CKMB Percent 13.6 % (0.0-4.0)
[2018-06-04] MEDS: Mag Sulf 1 gm/100 ml Premix 100 ML IV.SIG SCH ×2 (06:21→09:12)
[2018-06-04] MEDS: Potassium Chlor 20 mEq Premix 20 MEQ/100 ML PIGGYBACK IV.SIG SCH ×3 (06:21→12:07)
--- NOTE | 2018-06-04 08:33 | P.PNCA ---
Subjective Interval history: Denies angina, dizziness, groin pain, leg pain, palpitations. Mild dyspnea without oxygen. Physical Exam Vital signs: Vital Signs 06/03/18 23:00 06/03/18 23:10 06/03/18 23:15 Temperature 98.0 F Pulse Rate 96 H 94 H Respiratory Rate 18 25 H Blood Pressure 84/56 L 73/52 L Pulse Oximetry 99 100 98 06/03/18 23:20 06/03/18 23:25 06/03/18 23:30 Temperature Pulse Rate 90 88 80 Respiratory Rate 22 Blood Pressure 63/46 L 66/45 L 88/53 L Pulse Oximetry 100 100 100 06/03/18 23:35 06/03/18 23:39 06/03/18 23:45 Temperature Pulse Rate 90 91 H 80 Respiratory Rate Blood Pressure 88/53 L 87/51 L 84/53 L Pulse Oximetry 100 100 99 06/04/18 01:00 06/04/18 02:34 06/04/18 03:17 Temperature 98.5 F Pulse Rate 92 H Respiratory Rate 18 Blood Pressure 105/63 Pulse Oximetry 91 L 94 L 97 06/04/18 05:37 Temperature Pulse Rate 87 Respiratory Rate Blood Pressure Pulse Oximetry Intake & Output 06/03/18 06/04/18 06/04/18 18:59 06:59 18:59 Intake Total 250 / 250 Output Total 650 / 650 Balance -400 / -400 Weight 77.5 kg Intake: IV 250 / 250 Heparin/D5W 25,000 U/250 mL 25, 250 / 250 000 unit In 250 ml @ Per Protocol IV.CONT TITRATE PRN Rx #:[id number] Output: Urine 600 / 600 Emesis 50 / 50 Other: Date of Last Bowel Movement 06/03/18 # Bowel Movements 0 - Constitutional no acute distress - Routine Respiratory Exam Comments: Diminished breath sounds bases. - Routine Cardiovascular Exam Present: RRR, S1, S2, murmur. Absent: gallop Comments: I/ ANNEL base. - Routine Abdominal Exam Present: soft, normoactive bowel sounds. Absent: tenderness, organomegaly - Routine Extremities Exam Absent: cyanosis, clubbing, edema Comments: Right groin nontender, no hematoma. Assessment and Plan - Assessment (1) ST elevation myocardial infarction (STEMI) Code(s): I21.3 - ST elevation (STEMI) myocardial infarction of unspecified site Status: Acute Plan: Hemodynamically, clinically stable since emergent cath. Right femoral arteriotomy site stable s/p IABP insert. Angina-free at present. Some increase in dyspnea and oxygen requirement. BP's still somewhat low for beta mario alberto, SHIRLEY-I therapy. REC await CV surgery consultation, continue IABP, hep drip, aspirin; if BP's tolerate start beta mario alberto, SHIRLEY-I over the weekend (2) Ventricular tachyarrhythmia Code(s): I47.2 - Ventricular tachycardia Status: Acute Plan: No further ventricular tachyarrhythmias. Continue IV Amiodarone for now. (3) Hyperlipidemia Code(s): E78.5 - Hyperlipidemia, unspecified Status: Chronic Plan: Overall suboptimal LDL level. Continue statin therapy, recheck lipid profile in 8 weeks. - Plan Code Status: full code Discussed Condition With: patient and his (1) ST elevation myocardial infarction (STEMI) Qualifiers: Involved coronary artery: LAD coronary artery Qualified Code(s): I21.02 - ST elevation (STEMI) myocardial infarction involving left anterior descending coronary artery (3) Hyperlipidemia Qualifiers: Hyperlipidemia type: pure hypercholesterolemia Qualified Code(s): E78.00 - Pure hypercholesterolemia, unspecified; E78.0 - Pure hypercholesterolemia
--- NOTE | 2018-06-04 08:49 | P.PNCV ---
- Note Subjective/Hospital Course: Risk Model and Variables - STS Adult Cardiac Surgery Database Version 2.81 RISK SCORES About the STS Risk Calculator Procedure: CAB Only Risk of Mortality: 12.119% Morbidity or Mortality: 64.35% Long Length of Stay: 30.329% Short Length of Stay: 8.872% Permanent Stroke: 1.703% Prolonged Ventilation: 61.737% DSW Infection: 0.892% Renal Failure: 12.17% Reoperation: 17.817% Objective: Vital Signs - 24 hr 06/03/18 23:00 06/03/18 23:10 06/03/18 23:15 Temperature 98.0 F Pulse Rate 96 H 94 H Respiratory Rate 18 25 H Blood Pressure 84/56 L 73/52 L Pulse Oximetry 99 100 98 06/03/18 23:20 06/03/18 23:25 06/03/18 23:30 Temperature Pulse Rate 90 88 80 Respiratory Rate 22 Blood Pressure 63/46 L 66/45 L 88/53 L Pulse Oximetry 100 100 100 06/03/18 23:35 06/03/18 23:39 06/03/18 23:45 Temperature Pulse Rate 90 91 H 80 Respiratory Rate Blood Pressure 88/53 L 87/51 L 84/53 L Pulse Oximetry 100 100 99 06/04/18 01:00 06/04/18 02:34 06/04/18 03:17 Temperature 98.5 F Pulse Rate 92 H Respiratory Rate 18 Blood Pressure 105/63 Pulse Oximetry 91 L 94 L 97 06/04/18 05:37 Temperature Pulse Rate 87 Respiratory Rate Blood Pressure Pulse Oximetry Labs: Laboratory Results - last 12 hr 06/03/18 06/03/18 06/03/18 23:00 23:00 23:00 WBC 8.7 RBC 4.42 L Hgb 14.6 POC Hgb (Calc) 14.3 Hct 43.3 POC Hct 42.0 MCV 97.9 MCH 33.1 MCHC 33.8 RDW 14.2 Plt Count 347 MPV 7.8 Neut % (Auto) 45.5 Lymph % (Auto) 40.3 Pickett % (Auto) 11.5 H Eos % (Auto) 2.0 Baso % (Auto) 0.7 Neut # (Auto) 4.0 Lymph # (Auto) 3.5 Pickett # (Auto) 1.0 H Eos # (Auto) 0.2 Baso # (Auto) 0.1 WBC Differential . Differential Comment Auto diff final PT 10.1 INR 1.0 APTT 23.1 L POC Sodium 140 Sodium POC Potassium 3.0 L Potassium POC Chloride 103 Chloride Carbon Dioxide Anion Gap POC BUN 17 BUN Creatinine POC Creatinine 1.3 Estimated GFR POC Glucose 167 H Random Glucose Calcium 8.8 Prot Corrected Calcium Magnesium 2.2 Total Creatine Kinase 105 CK-MB (CK-2) 2.6 CK-MB (CK-2) % Troponin I 0.21 H B-Natriuretic Peptide Total Protein Triglycerides Cholesterol LDL Cholesterol, Calc HDL Cholesterol Cholesterol/HDL Ratio 06/03/18 06/04/18 06/04/18 23:00 02:58 02:58 WBC RBC Hgb POC Hgb (Calc) Hct POC Hct MCV MCH MCHC RDW Plt Count MPV Neut % (Auto) Lymph % (Auto) Pickett % (Auto) Eos % (Auto) Baso % (Auto) Neut # (Auto) Lymph # (Auto) Pickett # (Auto) Eos # (Auto) Baso # (Auto) WBC Differential Differential Comment PT INR APTT 77.9 H D POC Sodium Sodium 144 POC Potassium Potassium 3.6 POC Chloride Chloride 111 H Carbon Dioxide 23.2 Anion Gap 10 POC BUN BUN 18 Creatinine 1.18 POC Creatinine Estimated GFR 61 L POC Glucose Random Glucose 140 H Calcium 7.3 L* D Prot Corrected Calcium 8.1 L Magnesium 1.6 D Total Creatine Kinase 811 H CK-MB (CK-2) 110.7 H CK-MB (CK-2) % 13.6 H* Troponin I 10.40 H* B-Natriuretic Peptide 29 Total Protein 5.7 L Triglycerides 50 Cholesterol 148 LDL Cholesterol, Calc 94 HDL Cholesterol 44.4 Cholesterol/HDL Ratio 3.33 06/04/18 02:58 WBC 14.7 H D RBC 4.17 L Hgb 13.5 POC Hgb (Calc) Hct 40.8 POC Hct MCV 97.8 MCH 32.3 MCHC 33.0 RDW 14.5 Plt Count 298 MPV 8.3 Neut % (Auto) 89.6 H Lymph % (Auto) 4.4 L Pickett % (Auto) 5.8 Eos % (Auto) 0.1 Baso % (Auto) 0.1 Neut # (Auto) 13.2 H Lymph # (Auto) 0.6 L Pickett # (Auto) 0.9 Eos # (Auto) 0.0 Baso # (Auto) 0.0 WBC Differential . Differential Comment Auto diff final PT INR APTT POC Sodium Sodium POC Potassium Potassium POC Chloride Chloride Carbon Dioxide Anion Gap POC BUN BUN Creatinine POC Creatinine Estimated GFR POC Glucose Random Glucose Calcium Prot Corrected Calcium Magnesium Total Creatine Kinase CK-MB (CK-2) CK-MB (CK-2) % Troponin I B-Natriuretic Peptide Total Protein Triglycerides Cholesterol LDL Cholesterol, Calc HDL Cholesterol Cholesterol/HDL Ratio Result Diagrams: 06/04/18 02:58 06/04/18 02:58
--- NOTE | 2018-06-04 09:29 | XR ---
EXAM DATE: 06/04/2018 9:25 AM EDT AGE/SEX: 72 years / Male INDICATIONS: Short of breath CLINICAL DATA: This is the patient's subsequent encounter. Patient reports that signs and symptoms h ave been present for 2 days and indicates a pain score of Nonresponsive. MEDICAL/SURGICAL HISTORY: Congestive heart failure. None. COMPARISON: [facility] – [place], CHEST 1V SINGLE AP, 06/04/2018. . FINDINGS: The cardiac silhouette is enlarged in transverse diameter. There are findings of congestive heart kyle lure with interstitial and alveolar opacity bilaterally. The findings have worsened when compared wi th the prior examination. No pleural effusions are identified. CONCLUSION: Cardiomegaly and findings of congestive heart failure. The findings have worsened when compared with the prior examination. Electronically signed by: Jermaine Alvarez MD 06/04/2018 9:28 AM EDT
[2018-06-04] MEDS ORDERED: Dextrose 50% in Water 50 ML Vial IV.PUSH PRN (09:43)
[2018-06-04] MEDS ORDERED: Insulin Regular (For Infusion) 100 UNIT in Sodium Chlor 0.9% Inj 99 ML IV.CONT PRN (09:43)
[2018-06-04] MEDS ORDERED: Sodium Chlor 0.9% Inj 77.5 ML, Papaverine Inj 60 MG, Nitroglycerin Inj 100 MCG, dilTIAZ... IRRIGATION SCH ×3 (09:45)
[2018-06-04] MEDS ORDERED: Chlorhexidine 4% Topical 120 APPLIC/120 ML Bottle TOPICAL SCH (09:45)
[2018-06-04] MEDS ORDERED: Sodium Chloride 0.9% Irr Bot 500 ML, ceFAZolin Inj 500 MG IRRIGATION SCH ×2 (09:45)
--- NOTE | 2018-06-04 09:59 | P.CON ---
History of Present Illness Service: Cardiothoracic surgery Consult date: 06/04/18 Requesting Physician: Brayden Tim Reason for Consult: Coronary artery disease Primary Care Provider: UNKNOWN Family Provider: UNKNOWN Chief Complaint: chest pain History of Present Illness: Pleasant 72-year-old gentleman with no prior identifiable cardiac history who presents with new onset chest pain starting around 6 PM last night. Patient describes this as a severe substernal pressure sensation with radiation to the left arm. Patient called EMS and was being transferred to the hospital when he suffered a ventricular fibrillation arrest necessitating defibrillation and manual CPR. No intubation was required. Following presentation he was noted to have an STEMI and underwent emergent cardiac catheterization by Dr. Tim. Coronary angiography revealed moderate left main stenosis with associated critical LAD and circumflex disease, with minimal nonobstructive right coronary artery lesions. This is in the setting of severe left ventricular dysfunction with estimated EF 25%. Intra-aortic balloon pump was placed, patient was begun on inotropic therapy and transferred to CVICU for further management. I am now be considered for surgical respiration therapy per At the present time he remains chest pain-free, hemodynamically stable with no evidence of ongoing progressive ischemia. He does have sternal pain from his CPR. Review of Systems All other systems reviewed negative except as stated in HPI [facility] - History History Provided By: Patient, Family Member - Medical History Medical History: Medical History (Last Updated 06/04/18 @ 04:36 by Joaquín Burns MD) Meniscal injury Meniscal injury Patient denies medical problems - Surgical History Surgical History: Surgical History (Last Reviewed 06/04/18 @ 04:35 by Joaquín Burns MD) No history of previous surgery - Tobacco History Second Hand Smoke Exposure: No Smoking Status: Never smoker - Alcohol History How Often Do You Have a Drink Containing Alcohol: 2 to 4 times a month - Substance Use History Substance History: No History of Abuse Medications and Allergies Active Medications: Active Medications Aspirin (Aspirin Chew) 81 mg PO DAILY [facility] Last Admin: 06/04/18 09:11 Dose: 81 mg Atorvastatin Calcium (Lipitor) 40 mg PO HS [facility] Dextrose (D50w Vial) 50 ml IV.PUSH UNSCH PRN PRN Reason: PER HYPOGLYCEMIA PROTOCOL Sodium Chloride (Ns Inj) 1,000 mls @ 30 mls/hr IV.SIG .Q24H [facility] Stop: 06/04/18 23:14 Last Infusion: 06/04/18 09:09 Dose: 0 mls/hr Dobutamine HCl/Dextrose (Dobutamine 250 Mg/250 Ml Premx) 250 mg in 250 mls @ 10.886 mls/hr IV.CONT .[id number] [facility] Last Infusion: 06/04/18 05:41 Dose: 0 mcg/kg/min, 0 mls/hr Heparin Sodium/Dextrose (Heparin/D5w 25,000 U/250 Ml) 25,000 unit in 250 mls @ 0 mls/hr IV.CONT TITRATE PRN; Protocol PRN Reason: Per Protocol Last Admin: 06/04/18 04:00 Dose: 900 units/hr, 9 mls/hr Sodium Chloride (Ns Inj) 1,000 mls @ 100 mls/hr IV.CONT .Q10H [facility] Stop: 06/04/18 12:44 Last Admin: 06/04/18 04:03 Dose: Not Given Amiodarone HCl 450 mg/ (Dextrose) 250 mls @ 33.33 mls/hr IV.CONT TITRATE PRN; Protocol PRN Reason: Per Protocol Potassium Chloride (Kcl 20 Meq Premix Inj) 20 meq in 100 mls @ 50 mls/hr IV.SIG Q2H SUZIE Stop: 06/04/18 11:29 Last Admin: 06/04/18 09:13 Dose: 50 mls/hr Cefazolin Sodium 2,000 mg/ (Sodium Chloride) 100 mls @ 200 mls/hr IV.SIG [employer] [facility] Stop: 06/10/18 09:44 Insulin Human Regular 100 unit (/ Sodium Chloride) 100 mls @ 3 mls/hr IV.CONT TITRATE PRN; Protocol PRN Reason: See Protocol Sodium Chloride (Ns Flush) 2 ml IV.FLUSH PRN PRN PRN Reason: FLUSH AFTER USING IV ACCESS Sodium Chloride (Ns Flush) 2 ml IV.FLUSH BID [facility] Last Admin: 06/04/18 09:14 Dose: 2 ml Allergies Allergy/AdvReac Type Severity Reaction Status Date / Time No Known Allergies Allergy Unverified 06/03/18 23:03 Home Medications Medication Instructions Recorded Confirmed Type No Known Home Medications 06/03/18 06/03/18 History Physical Exam Vital signs: Vital Signs 06/03/18 23:00 06/03/18 23:10 06/03/18 23:15 Temperature 98.0 F Pulse Rate 96 H 94 H Respiratory Rate 18 25 H Blood Pressure 84/56 L 73/52 L Pulse Oximetry 99 100 98 06/03/18 23:20 06/03/18 23:25 06/03/18 23:30 Temperature Pulse Rate 90 88 80 Respiratory Rate 22 Blood Pressure 63/46 L 66/45 L 88/53 L Pulse Oximetry 100 100 100 06/03/18 23:35 06/03/18 23:39 06/03/18 23:45 Temperature Pulse Rate 90 91 H 80 Respiratory Rate Blood Pressure 88/53 L 87/51 L 84/53 L Pulse Oximetry 100 100 99 06/04/18 01:00 06/04/18 02:34 06/04/18 03:17 Temperature 98.5 F Pulse Rate 92 H Respiratory Rate 18 Blood Pressure 105/63 Pulse Oximetry 91 L 94 L 97 06/04/18 05:37 06/04/18 07:00 06/04/18 08:00 Temperature 99.4 F Pulse Rate 87 74 74 Respiratory Rate 20 Blood Pressure 108/44 L Pulse Oximetry 94 L 06/04/18 09:18 Temperature Pulse Rate Respiratory Rate Blood Pressure Pulse Oximetry 94 L Intake & Output 06/03/18 06/04/18 06/04/18 18:59 06:59 18:59 Intake Total 250 / 250 600 / 600 Output Total 650 / 650 Balance -400 / -400 600 / 600 Weight 77.5 kg Intake: IV 250 / 250 600 / 600 Heparin/D5W 25,000 U/250 mL 25, 250 / 250 000 unit In 250 ml @ Per Protocol IV.CONT TITRATE PRN Rx #:[id number] Magnesium Sulfate 1 gm/D5W 100 100 / 100 ml Premix 100 ML @ 100 mls/hr IV.SIG Q1H SUZ[facility] Rx#:[id number] KCl 20 mEq Premix Inj 20 meq In 100 / 100 100 ml @ 50 mls/hr IV.SIG Q2H SUZ[facility] Rx#:[id number] NS Inj 1,000 ML @ 30 mls/hr IV. 400 / 400 SIG .Q24H SUZIE Rx#:[id number] Output: Urine 600 / 600 Emesis 50 / 50 Other: Date of Last Bowel Movement 06/03/18 # Bowel Movements 0 - Constitutional no acute distress, thin - Routine HEENT Exam Head: Present: normocephalic, atraumatic Eye: Present: EOMI, PERRL ENT: Present: mucous membranes moist - Routine Neck Exam Present: supple, full ROM. Absent: JVD, carotid bruit - Routine Respiratory Exam Present: accessory muscle use, crackles, distant breath sounds - Routine Cardiovascular Exam Present: RRR, S1, S2. Absent: murmur, gallop, rubs - Routine Abdominal Exam Present: soft, normoactive bowel sounds. Absent: tenderness, distended, rebound , guarding - Routine Extremities Exam Present: full ROM, pulses intact, normal capillary refill. Absent: cyanosis, clubbing, edema - Routine Skin Exam Present: intact. Absent: cyanosis, erythema - Routine Neurological Exam Present: alert, oriented X3, CN II-XII intact. Absent: sensory deficit, motor deficit - Routine Psychiatric Exam Present: normal affect, normal thought process Assessment and Plan - Assessment (1) Severe left ventricular systolic dysfunction Code(s): I51.9 - Heart disease, unspecified Status: Acute (2) ST elevation myocardial infarction (STEMI) Code(s): I21.3 - ST elevation (STEMI) myocardial infarction of unspecified site Status: Acute (3) Ventricular tachyarrhythmia Code(s): I47.2 - Ventricular tachycardia Status: Acute (4) Hyperlipidemia Code(s): E78.5 - Hyperlipidemia, unspecified Status: Chronic - Plan The angiographic findings were discussed in detail with the patient and his . Therapeutic options available including CABG was offered. I agree with Dr. Tim that he will maximally benefit from bypass to his LAD and OM1 distributions. The risks, complications including but not limited to bleeding, infection, stroke, myocardial injury and , and benefits of the surgical procedure were discussed in details and all questions answered. He understands the provided information and agrees to proceed with the planned operation. Given his severe left ventricular dysfunction, as well as his presenting cardiogenic shock and ventricular tachyarrhythmia, he remains at significant risk for operative and perioperative morbidity and mortality, however, at this point surgical revascularization therapy offers him the best survival advantage. We will plan on proceeding with the surgical procedure as describe above in the next 24-48 hours. I would like to see his oxygenation improved somewhat with associated diuresis to improve his pulmonary edema prior to proceeding with surgical therapy, as long as he remains hemodynamically and electrically stable. In the meantime, we will obtain carotid duplex imaging and lower extremity vein mapping. STS risk analysis was performed and the results discussed with the patient and his . Thank you for allowing me to participate in the care of this patient. (2) ST elevation myocardial infarction (STEMI) Qualifiers: Involved coronary artery: LAD coronary artery Qualified Code(s): I21.02 - ST elevation (STEMI) myocardial infarction involving left anterior descending coronary artery (4) Hyperlipidemia Qualifiers: Hyperlipidemia type: pure hypercholesterolemia Qualified Code(s): E78.00 - Pure hypercholesterolemia, unspecified; E78.0 - Pure hypercholesterolemia
[2018-06-04] MEDS ORDERED: ceFAZolin Inj 2,000 MG in Sodium Chlor 0.9% Inj 80 ML IV.SIG SCH (10:00)
[2018-06-04] MEDS ORDERED: Iohexol 350 MG/ML 100 ML Vial (for Cath Lab) IVCONTRAST ONE (11:14)
[2018-06-04] MEDS ORDERED: Iohexol 350 MG/ML 50 ML Vial (for Cath Lab) IVCONTRAST ONE (11:14)
--- NOTE | 2018-06-04 11:33 | P.PNCC ---
Subjective Subjective Remarks/Hospital Course: This is a 72-year-old male with a relatively unremarkable past medical history who is active and was in his usual state of health when he had sudden onset crushing substernal chest pain radiating to his left shoulder around 6 PM tonight. EMS was called. In the ambulance, he had a V. fib arrest and was emergently defibrillated. He was not intubated at that time and mental status returned to baseline. In the emergency department he was found to have an ST elevation myocardial infarction. He was emergently taken to the [facility] Techn[facility]. He has multivessel disease with essentially left main equivalent with severe distal left main disease, 90% proximal LAD disease, 70-80% circumflex disease, and moderate RCA disease. He has an acute EF of 25-30% by left ventriculography. Decision was made to forego intervening on the lesions and placed intra-arterial balloon pump in favor of cardiothoracic surgical evaluation. I evaluated the patient on arrival to the CVICU. He is awake and alert. He states that his chest pain is significantly improved from precatheterization. He does state that his chest is sore from the short round of CPR he received in the ambulance. He is on a dopamine infusion at 8 mcg/kg/ min on my evaluation. IVP is 1:1. Augmented mean arterial pressures 111 mmHg. He does endorse mild nausea. Denies vomiting, diarrhea, abdominal pain. Denies fever, chills, cough, new sputum production. He states that he can walk 2-3 blocks without getting winded. He does state the climbing 2 flights of stairs would make him significantly short of breath. He has a remote history of smoking when he was a teenager, does drink 2-3 drinks a week. His only family history of coronary artery disease was his grandmother who he said may have had a heart attack when she was very old. Remainder of review systems is negative. SUBJECTIVE: 06/04: Patient complains of mild chest pain and nausea, remains on IABP, dopamine , and amio. Received lasix this morning. Objective Vital Signs / I&O: Vital Signs 06/03/18 23:00 06/03/18 23:10 06/03/18 23:15 Temperature 98.0 F Pulse Rate 96 H 94 H Respiratory Rate 18 25 H Blood Pressure 84/56 L 73/52 L Pulse Oximetry 99 100 98 06/03/18 23:20 06/03/18 23:25 06/03/18 23:30 Temperature Pulse Rate 90 88 80 Respiratory Rate 22 Blood Pressure 63/46 L 66/45 L 88/53 L Pulse Oximetry 100 100 100 06/03/18 23:35 06/03/18 23:39 06/03/18 23:45 Temperature Pulse Rate 90 91 H 80 Respiratory Rate Blood Pressure 88/53 L 87/51 L 84/53 L Pulse Oximetry 100 100 99 06/04/18 01:00 06/04/18 02:34 06/04/18 03:17 Temperature 98.5 F Pulse Rate 92 H Respiratory Rate 18 Blood Pressure 105/63 Pulse Oximetry 91 L 94 L 97 06/04/18 05:37 06/04/18 07:00 06/04/18 08:00 Temperature 99.4 F Pulse Rate 87 74 74 Respiratory Rate 20 Blood Pressure 108/44 L Pulse Oximetry 94 L 06/04/18 09:18 06/04/18 11:21 Temperature Pulse Rate Respiratory Rate Blood Pressure Pulse Oximetry 94 L 95 Intake & Output 06/03/18 06/04/18 06/04/18 18:59 06:59 18:59 Intake Total 250 / 250 600 / 600 Output Total 650 / 650 Balance -400 / -400 600 / 600 Weight 77.5 kg Intake: IV 250 / 250 600 / 600 Heparin/D5W 25,000 U/250 mL 25, 250 / 250 000 unit In 250 ml @ Per Protocol IV.CONT TITRATE PRN Rx #:[id number] Magnesium Sulfate 1 gm/D5W 100 100 / 100 ml Premix 100 ML @ 100 mls/hr IV.SIG Q1H [facility] Rx#:[id number] KCl 20 mEq Premix Inj 20 meq In 100 / 100 100 ml @ 50 mls/hr IV.SIG Q2H [facility] Rx#:[id number] NS Inj 1,000 ML @ 30 mls/hr IV. 400 / 400 SIG .Q24H [facility] Rx#:[id number] Output: Urine 600 / 600 Emesis 50 / 50 Other: Date of Last Bowel Movement 06/03/18 # Bowel Movements 0 Result Diagrams: 06/04/18 02:58 06/04/18 02:58 Objective Remarks: GEN: Well-appearing, no acute distress HEENT: NCAT, pupils 3 mm and reactive bilaterally NECK: Trachea midline, no JVD CARDIO: Regular rate and rhythm, (+) chest wall tenderness PULM: Diminished breath sounds at bases bilaterally, O2 sats 90% on face mask ABD: Soft, non-tender in all quadrants EXT: IABP present in RFA, dressings clean/ dry/ intact SKIN: Warm and well-perfused NEURO: GCS 15, A&Ox3, no focal neuro deficits Assessment and Plan - Assessment and Plan Plan: Assessment: 72-year-old male with ST elevation myocardial infarction and new diagnosis of multivessel disease with left main equivalent high risk coronary artery lesions. Agree with CT surgery consultation for urgent revascularization. Keep IABP 1-1. Very low threshold to start nitroglycerin for any chest pain. Keep Zoll pads on the patient and monitor closely on telemetry and treat for any malignant dysrhythmias. Critically ill and high risk for sudden cardiac . Active problems: ST elevation myocardial infarction Acute coronary syndrome Multivessel coronary artery disease Left main equivalent high risk coronary artery lesions Active coronary ischemia Out of hospital V. fib cardiac arrest Acute hypoxemia Plan: Continue heparin drip Continue dopamine for augmented mean greater than 90, currently @ 10 Amio @ 0.5, currently in sinus, continue Continue intra-arterial balloon pump 1:[address] surgery consultation appreciated, tentative plan for CABG in 2 days Continue to lie flat with mild reverse Trendelenburg Wean oxygen for goal SPO2 greater than 94%, received lasix this morning, continue to diurese as BP tolerates (goal net negative 500-1000 cc today) PRN nebs CXR this morning showed venous congestion, no PTX or pulmonary contusions; will order lidoderm patch for chest wall pain from defibrillation/ compressions Keep K+ >4.0 and Mg++ >2.0, ICU electrolyte protocol Aspirin Statin Very low threshold for nitroglycerin for any chest pain Keep on telemetry Zoll pads in place Cardiac diet, fluid restriction of 1200 cc, aspiration precautions as patient cannot sit up with IABP in place SCDs Pepcid Requires continued ICU level of care, stable but still critically ill Counseling/ Coordination of Care: Total critical care time: 42 minutes. This includes examining the patient, gathering history from someone other than the patient (i.e., chart review), discussing the patient's care with other providers, managing the patient's blood pressure via vasoactive medications and external device, interpreting radiology studies, interpreting laboratory studies, managing the patient's pain and nausea, re-evaluation at frequent intervals, and documentation. All critical care time is separate and exclusive of procedures, teaching, and patient/ family updates. Code Status: Full
[2018-06-04] MEDS: Mupirocin 2% Nasal Oint Topical Syringe EACH NARE SCH ×2 (12:07→22:01)
[2018-06-04 12:30] LABS: Bilirubin,Urine Negative (Negative); Clarity,Urine Clear (Clear); Color,Urine Yellow (Yellw/Straw); Glucose,Urine (UA) Negative (Negative); Leukocyte Esterase,Urine Negative (Negative); Mucus,Urine Few /lpf (Occasional); Nitrite,Urine Negative (Negative); Specific Gravity,Urine 1.016 (1.002-1.035)
--- NOTE | 2018-06-04 14:23 | ECG ---
Date Performed: 06/03/2018 Time Performed: 23:00:14 PTAGE: 72 years EKG: Sinus rhythm POSSIBLE LEFT ATRIAL ENLARGEMENT MODERATE ST DEPRESSION SEPTAL ST ELEVATION WITH INVOLVEMENT OF THE HIGH LATERAL WALL AND RECIPROCAL CHANGE EKG IS CONSISTENT WITH AN ACUTE ANTEROLATERAL ST SEGMENT ELEV ATION MYOCARDIAL INFARCTION THERE IS NO PRIOR TRACING FOR COMPARISON ABNORMAL ECG NO PREVIOUS TRACING DOCTOR: Argenis Nails Interpretating Date/Time 06/04/2018 14:22:05
--- NOTE | 2018-06-04 14:25 | ECG ---
Date Performed: 06/04/2018 Time Performed: 00:43:12 PTAGE: 72 years EKG: Sinus rhythm . Possible left atrial abnormality Possible anteroseptal infarct - age undetermined Inferior/lateral ST-T changes suggest myocardial injury/ischemia Generalized low QRS voltages Abnormal ECG Compared to PREVIOUS TRACING , the ST elevation in leads I and aVL has resolved but there is residual ST elevation in the septal leads. There has been improvement in the inferior ST depression but some ST depression persists. Tracing remains consistent with anteroseptal ST segment infarction. PREVIOUS TRACIN06/03/2018 23.00 DOCTOR: Argenis Nails Interpretating Date/Time 06/04/2018 14:23:26
--- NOTE | 2018-06-04 14:27 | ECG ---
Date Performed: 06/04/2018 Time Performed: 03:51:02 PTAGE: 72 years EKG: Sinus rhythm Possible anteroseptal infarct - age undetermined Low QRS voltages in limb leads Abnormal ECG Compare d to PREVIOUS TRACING , the ekg changes suggesting HI have improved. There is some minimal ST elevation in the septal leads but it does not meet diagnostic criteria for an ST segment elevation in farction. The PVCs are new. Overall the series of tracings is consistent with reperfusion of anterola teral ST segment elevation infarction. Clinicla correlation will be important. PREVIOUS TRACIN02/2018 23.00 DOCTOR: Argenis Nails Interpretating Date/Time 06/04/2018 14:25:07
[2018-06-04] MEDS: Lidocaine 5% Patch T-DERMAL SCH (15:16)
--- NOTE | 2018-06-04 17:08 | US ---
EXAM DATE: 06/04/2018 5:05 PM EDT AGE/SEX: 72 years / Male INDICATIONS: Pre-Op cardiac surgery. CLINICAL DATA: This is the patient's initial encounter. Patient reports that signs and symptoms have been present for 2 days and indicates a pain score of 0/10. MEDICAL/SURGICAL HISTORY: . ST elevation myocardial infarction. Coronary artery disease. Menisc al injury. . Cardiac catheterization. COMPARISON: No prior exams available for comparison. VELOCITY PARAMETERS: ICA/CCA Ratio: Right 0.6 , Left 0.6 ICA: Right 65 cm/sec, Left 77 cm/sec CCA: Right 115 cm/sec, Left 120 cm/sec ECA: Right 120 cm/sec, Left 120 cm/sec Vertebral: Right 30 cm/sec antegrade, Left 49 cm/sec antegrade FINDINGS: RIGHT CAROTID: There is no evidence for a hemodynamically significant carotid stenosis. Minimal int imal hyperplasia is present with scattered calcific plaque. LEFT CAROTID: There is no evidence for a hemodynamically significant carotid stenosis. Minimal inti mal hyperplasia is present with scattered calcific plaque. Flow is antegrade in both vertebral arteries. There are no ancillary masses or adenopathy. CONCLUSION: Negative examination for a hemodynamically significant carotid stenosis. Alexis Brar MD FACR Electronically signed by: Alexis Brar MD 06/04/2018 5:07 PM EDT
--- NOTE | 2018-06-04 17:14 | US ---
EXAM DATE: 06/04/2018 5:11 PM EDT AGE/SEX: 72 years / Male INDICATIONS: Pre-Op cardiac surgery. CLINICAL DATA: This is the patient's initial encounter. Patient reports that signs and symptoms have been present for 2 days and indicates a pain score of 0/10. MEDICAL/SURGICAL HISTORY: . ST elevation myocardial infarction. Coronary artery disease. Menisc al injury. . Cardiac catheterization. [place]PAR[place] [facility] [place]PL[place] 06/04[place]2018. . MEASUREMENTS: RIGHT THIGH: Proximal:__2 mm Mid:__ 2 mm Distal:__1 mm LEFT THIGH: Proximal:__2 mm Mid:__Non-visualized Distal:__1 mm RIGHT CALF: Proximal:__Non-visualized Mid:__Non-visualized Distal:__Non-visualized LEFT CALF: Proximal:__Non-visualized Mid:__Non-visualized Distal:__Non-visualized FINDINGS: The venous system of the lower extremities are patent by color Doppler imaging. Measurements of the leg veins (in mm) are listed above. CONCLUSION: 1. Venous mapping as above Electronically signed by: Alexis Brar MD 06/04/2018 5:12 PM EDT
--- NOTE | 2018-06-04 17:15 | US ---
EXAM DATE: 06/04/2018 5:08 PM EDT AGE/SEX: 72 years / Male INDICATIONS: Pre-Op cardiac surgery. CLINICAL DATA: This is the patient's initial encounter. Patient reports that signs and symptoms have been present for 2 days and indicates a pain score of 0/10. MEDICAL/SURGICAL HISTORY: . ST elevation myocardial infarction. Coronary artery disease. Menisc al injury. . Cardiac catheterization. COMPARISON: No prior exams available for comparison. TECHNIQUE: Venous ultrasound of both lower extremities was performed from the inguinal ligament to t he proximal calf. Real-time, color Doppler and spectral tracing, compression and augmentation techni ques were used. FINDINGS: Limited exam due to aortic pump placement and bandages. Limited view of the right and left common femoral vein and iliac vein due to aortic pump and bandage placement. No thrombus is seen. No augment flow due to the limited view of the vessels. Right Leg: Normal compression of the deep venous system from the inguinal region to the proximal joanie f. No echogenic clot is seen. Normal fill in with color from the level of the greater saphenous vein distally to the proximal calf.. Left Leg: Normal compression of the deep venous system from the inguinal region to the proximal calf . No echogenic clot is seen. Normal fill in with color from the level of the greater saphenous vein d istally to the proximal calf. Other: None. CONCLUSION: 1. No evidence of thrombus within either lower extremity. Limited visualization of the right and lef t iliac vein and common femoral veins secondary to overlying bandages and aortic pump placement. Electronically signed by: Misti Weathers MD 06/04/2018 5:13 PM EDT
[2018-06-04 17:19] LABS: Hemoglobin A1c 5.3 % (4.3-6.0)
[2018-06-04 19:10] LABS: Hematocrit 40.4 % (39.0-51.0); Hemoglobin 13.5 gm/dL (13.0-17.0); Mean Corpuscular HGB Conc 33.5 % (32.0-36.0); Mean Corpuscular Hemoglobin 32.6 pg (27.0-34.0); Mean Corpuscular Volume 97.2 fL (80.0-100.0); Mean Platelet Volume 7.9 fL (7.0-11.0); Platelet Count 241 th/mm3 (150-450); Red Blood Count 4.15 mil/mm3 (4.50-5.90); Red Cell Distribution Width 13.9 % (11.6-17.2)
[2018-06-04 19:32] LABS: Carbon Dioxide 22.9 meq/L (21.0-32.0); Potassium 3.6 meq/L (3.5-5.1)
[2018-06-04] MEDS: Heparin 10,000 UNITS/10 ML Vial (for IV use) IV.PUSH PRN (21:59)
[2018-06-04] MEDS: DOBUTamine 250 MG/250 ML Premx 250 MG/250 ML BAG IV.CONT SCH (23:11)
[2018-06-05] MEDS ORDERED: Heparin 10,000 UNITS/10 ML Vial (for IV use) IV.PUSH PRN (03:15)
[2018-06-05 04:46] LABS: Hematocrit 36.5 % (39.0-51.0); Hemoglobin 12.3 gm/dL (13.0-17.0); Mean Corpuscular HGB Conc 33.8 % (32.0-36.0); Mean Corpuscular Hemoglobin 32.6 pg (27.0-34.0); Mean Corpuscular Volume 96.4 fL (80.0-100.0); Mean Platelet Volume 7.6 fL (7.0-11.0); Platelet Count 202 th/mm3 (150-450); Red Blood Count 3.79 mil/mm3 (4.50-5.90); Red Cell Distribution Width 14.1 % (11.6-17.2); White Blood Count 11.6 th/mm3 (4.0-11.0)
[2018-06-05 05:21] LABS: Alanine Aminotransferase 75 U/L (12-78); Albumin 2.5 g/dL (3.4-5.0); Alkaline Phosphatase 64 U/L (45-117); Anion Gap 11 meq/L (5-15); Aspartate Aminotransferase 209 U/L (15-37); Blood Urea Nitrogen 15 mg/dL (7-18); Calcium 7.5 mg/dL (8.5-10.1); Carbon Dioxide 26.9 meq/L (21.0-32.0); Chloride 104 meq/L (98-107); Glomerular Filtration Rate 67 mL/min (>89); Glucose,Random 124 mg/dL (74-106); Magnesium 2.3 mg/dL (1.5-2.5); Phosphorus 2.7 mg/dL (2.5-4.9); Potassium 3.7 meq/L (3.5-5.1); Sodium 142 meq/L (136-145); Total Protein 5.6 g/dL (6.4-8.2)
[2018-06-05] MEDS: DOBUTamine 250 MG/250 ML Premx 250 MG/250 ML BAG IV.CONT SCH (05:58)
[2018-06-05] MEDS: Heparin 10,000 UNITS/10 ML Vial (for IV use) IV.PUSH PRN (06:40)
--- NOTE | 2018-06-05 07:56 | P.PNCC ---
Subjective Subjective Remarks/Hospital Course: This is a 72-year-old male with a relatively unremarkable past medical history who is active and was in his usual state of health when he had sudden onset crushing substernal chest pain radiating to his left shoulder around 6 PM tonight. EMS was called. In the ambulance, he had a V. fib arrest and was emergently defibrillated. He was not intubated at that time and mental status returned to baseline. In the emergency department he was found to have an ST elevation myocardial infarction. He was emergently taken to the [facility]. He has multivessel disease with essentially left main equivalent with severe distal left main disease, 90% proximal LAD disease, 70-80% circumflex disease, and moderate RCA disease. He has an acute EF of 25-30% by left ventriculography. Decision was made to forego intervening on the lesions and placed intra-arterial balloon pump in favor of cardiothoracic surgical evaluation. I evaluated the patient on arrival to the CVICU. He is awake and alert. He states that his chest pain is significantly improved from precatheterization. He does state that his chest is sore from the short round of CPR he received in the ambulance. He is on a dopamine infusion at 8 mcg/kg/ min on my evaluation. IVP is 1:1. Augmented mean arterial pressures 111 mmHg. He does endorse mild nausea. Denies vomiting, diarrhea, abdominal pain. Denies fever, chills, cough, new sputum production. He states that he can walk 2-3 blocks without getting winded. He does state the climbing 2 flights of stairs would make him significantly short of breath. He has a remote history of smoking when he was a teenager, does drink 2-3 drinks a week. His only family history of coronary artery disease was his grandmother who he said may have had a heart attack when she was very old. Remainder of review systems is negative. SUBJECTIVE: 06/04: Patient complains of mild chest pain and nausea, remains on IABP, dobutamine, and amio. Received lasix this morning. 06/05: No issues overnight, patient says that his nausea has resolved and reports that his chest "soreness" is improved after having a lidoderm patch placed. Remains on IABP. Awaiting CABG tomorrow. Objective Vital Signs / I&O: Vital Signs 06/04/18 08:00 06/04/18 09:18 06/04/18 11:00 Temperature 99.1 F Pulse Rate 74 69 Respiratory Rate 20 Blood Pressure 108/80 Pulse Oximetry 94 L 96 06/04/18 11:21 06/04/18 13:52 06/04/18 15:00 Temperature 99.2 F Pulse Rate 72 Respiratory Rate 18 Blood Pressure 117/49 L Pulse Oximetry 95 93 L 96 06/04/18 19:00 06/04/18 20:00 06/04/18 23:00 Temperature 99.2 F 98.9 F Pulse Rate 112 H 112 H 103 H Respiratory Rate 22 20 Blood Pressure 114/46 L 108/47 L Pulse Oximetry 98 98 06/05/18 00:00 06/05/18 03:00 06/05/18 04:00 Temperature 99.1 F Pulse Rate 84 Respiratory Rate 20 18 20 Blood Pressure 108/71 Pulse Oximetry 97 Intake & Output 06/04/18 06/05/18 06/05/18 18:59 06:59 18:59 Intake Total 2050 / 2050 1180 / 1180 Output Total 2400 / 2400 700 / 700 Balance -350 / -350 480 / 480 Weight 74.5 kg Intake: IV 1750 / 1750 500 / 500 Cordarone Inj 450 MG In D5W Inj 250 / 250 241 ML @ 1 MG/MIN 33.33 mls/hr IV.CONT TITRATE PRN Rx#: [id number] DOBUTamine 250 MG/250 ML Premix 250 / 250 250 / 250 250 mg In 250 ml @ 2.5 MCG/KG/ MIN 10.886 mls/hr IV.CONT . [id number] SUZIE Rx#:[id number] Magnesium Sulfate 1 gm/D5W 100 200 / 200 ml Premix 100 ML @ 100 mls/hr IV.SIG Q1H SUZIE Rx#:[id number] KCl 20 mEq Premix Inj 20 meq In 400 / 400 100 ml @ 50 mls/hr IV.SIG Q2H SUZIE Rx#:[id number] NS Inj 1,000 ML @ 30 mls/hr IV. 400 / 400 SIG .Q24H SUZIE Rx#:[id number] Oral 680 / 680 Tube Feeding 300 / 300 Output: Urine 2400 / 2400 700 / 700 Other: Date of Last Bowel Movement 06/03/18 # Bowel Movements 0 Result Diagrams: 06/05/18 04:35 06/05/18 04:35 Objective Remarks: GEN: Well-appearing male lying in bed in no acute distress HEENT: NCAT, pupils 3 mm and reactive bilaterally NECK: Trachea midline, no JVD CARDIO: Regular rate and rhythm, (+) chest wall tenderness PULM: Lungs clear to auscultation bilaterally, normal work of breathing, O2 sats high 90s on 4-5L O2 NC ABD: Soft, non-tender in all quadrants, no guarding or rebound EXT: IABP present in RFA, dressings clean/ dry/ intact, no edema SKIN: Warm and well-perfused NEURO: GCS 15, A&Ox3, no focal neuro deficits PSYCH: Appropriate affect Assessment and Plan - Assessment and Plan Plan: Assessment: 72-year-old male with V fib arrest, ST elevation myocardial infarction, and new diagnosis of multivessel disease with left main equivalent high risk coronary artery lesions. CT surgery following for planned CABG tomorrow. Keep IABP 1-1. Very low threshold to start nitroglycerin for any chest pain. Keep Zoll pads on the patient and monitor closely on telemetry and treat for any malignant dysrhythmias. Critically ill and high risk for sudden cardiac . Active problems: ST elevation myocardial infarction Acute coronary syndrome Multivessel coronary artery disease Left main equivalent high risk coronary artery lesions Active coronary ischemia Out of hospital V. fib cardiac arrest Acute hypoxemia Plan: Ventricular fibrillation, cardiac arrest * Amio @ 0.5, currently in sinus, continue for arrhythmia prevention * Keep K+ >4.0 and Mg++ >2.0, ICU electrolyte protocol * Keep on telemetry * Zoll pads in place * LV ventriculogram during cardiac cath showed severe anterior wall and apical hypokinesis with EF of 25-30% * Moderate left main disease and severe LAD/ ostial 1st obtuse marginal * Lidoderm patch for chest wall pain from defibrillation/ compressions Severe multi-vessel coronary artery disease, STEMI * Continue heparin drip, aspirin, statin * Continue dobutamine for augmented MAP, currently @ 6 (will change to double concentrated to cut down volume he's receiving) * Continue intra-arterial balloon pump 1:1 * Cardio and CT surgery following, current plan is for CABG tomorrow * Continue to lie flat * Very low threshold for nitroglycerin for any chest pain * Vein mapping and carotid duplex performed yesterday Hypoxemia * Wean oxygen for goal SPO2 greater than 94%, receiving lasix 40 qday, continue to diurese as BP tolerates (goal net negative 500-1000 cc today, negative 400 cc yesterday) * PRN nebs Cardiac diet, fluid restriction of 1200 cc, aspiration precautions as patient cannot sit up with IABP in place. NPO at midnight. SCDs Pepcid Requires continued ICU level of care, stable but remains critically ill Counseling/ Coordination of Care: Total critical care time: 45 minutes. This includes examining the patient, gathering history from someone other than the patient (i.e., chart review), discussing the patient's care with other providers, managing the patient's blood pressure via vasoactive medications and external device, interpreting radiology studies, interpreting laboratory studies, managing the patient's pain and nausea, re-evaluation at frequent intervals, and documentation. All critical care time is separate and exclusive of procedures, teaching, and patient/ family updates. Code Status: Full
--- NOTE | 2018-06-05 08:55 | P.PNCV ---
- Note Subjective/Hospital Course: Pleasant 72-year-old gentleman with no prior identifiable cardiac history who presents with new onset chest pain. Patient called EMS and was being transferred to the hospital when he suffered a ventricular fibrillation arrest necessitating defibrillation and manual CPR. Following presentation he was noted to have an STEMI and underwent emergent cardiac catheterization by Dr. Tim. Coronary angiography revealed moderate left main stenosis with associated critical LAD and circumflex disease, with minimal nonobstructive right coronary artery lesions. This is in the setting of severe left ventricular dysfunction with estimated EF 25%. Intra-aortic balloon pump was placed, patient was begun on inotropic therapy and transferred to CVICU for further management. 06/05 Clinically and hemodynamically stable with IABP and Dobutamine support Exam - unchanged OR in am Objective: Vital Signs - 24 hr 06/04/18 09:18 06/04/18 11:00 06/04/18 11:21 Temperature 99.1 F Pulse Rate 69 Respiratory Rate 20 Blood Pressure 108/80 Pulse Oximetry 94 L 96 95 06/04/18 13:52 06/04/18 15:00 06/04/18 19:00 Temperature 99.2 F 99.2 F Pulse Rate 72 112 H Respiratory Rate 18 22 Blood Pressure 117/49 L 114/46 L Pulse Oximetry 93 L 96 98 06/04/18 20:00 06/04/18 23:00 06/05/18 00:00 Temperature 98.9 F Pulse Rate 112 H 103 H Respiratory Rate 20 20 Blood Pressure 108/47 L Pulse Oximetry 98 06/05/18 03:00 06/05/18 04:00 Temperature 99.1 F Pulse Rate 84 Respiratory Rate 18 20 Blood Pressure 108/71 Pulse Oximetry 97 Labs: Laboratory Results - last 12 hr 06/05/18 06/05/18 06/05/18 04:35 04:35 04:35 WBC 11.6 H RBC 3.79 L Hgb 12.3 L Hct 36.5 L MCV 96.4 MCH 32.6 MCHC 33.8 RDW 14.1 Plt Count 202 MPV 7.6 APTT 36.7 H Sodium 142 Potassium 3.7 Chloride 104 Carbon Dioxide 26.9 Anion Gap 11 BUN 15 Creatinine 1.08 Estimated GFR 67 L Random Glucose 124 H Calcium 7.5 L Phosphorus 2.7 Magnesium 2.3 D Total Bilirubin 0.7 AST 209 H ALT 75 Alkaline Phosphatase 64 Total Protein 5.6 L Albumin 2.5 L Result Diagrams: 06/05/18 04:35 06/05/18 04:35 Cardiovascular: RRR Telemetry: NSR Pulmonary: CTA - Plan (2) ST elevation myocardial infarction (STEMI) (4) Hyperlipidemia (2) ST elevation myocardial infarction (STEMI) Qualifiers: Involved coronary artery: LAD coronary artery Qualified Code(s): I21.02 - ST elevation (STEMI) myocardial infarction involving left anterior descending coronary artery (4) Hyperlipidemia Qualifiers: Hyperlipidemia type: pure hypercholesterolemia Qualified Code(s): E78.00 - Pure hypercholesterolemia, unspecified; E78.0 - Pure hypercholesterolemia
[2018-06-05] MEDS: Lidocaine 5% Patch T-DERMAL SCH (09:52)
[2018-06-05] MEDS: Mupirocin 2% Nasal Oint Topical Syringe EACH NARE SCH ×2 (09:52→21:06)
[2018-06-05] MEDS: DOBUTAMINE IV.CONT SCH (13:24)
[2018-06-05] MEDS: SODIUM CHLOR 0.9% IV.CONT SCH (13:24)
[2018-06-05] MEDS: Heparin Drip 25,000 UNIT/250 ML BAG IV.CONT PRN (18:35)
[2018-06-05] MEDS ORDERED: Chlorhexidine Gluconate 2% 1 Pack (2 Cloths) TOPICAL ONE (23:41)
[2018-06-05] MEDS ORDERED: Sodium Chlor 0.9% Inj 500 ML IV.SIG SCH (23:45)
[2018-06-06 04:04] LABS: Hematocrit 36.9 % (39.0-51.0); Hemoglobin 12.4 gm/dL (13.0-17.0); Mean Corpuscular HGB Conc 33.8 % (32.0-36.0); Mean Corpuscular Volume 97.9 fL (80.0-100.0); Platelet Count 169 th/mm3 (150-450); Red Blood Count 3.77 mil/mm3 (4.50-5.90); Red Cell Distribution Width 14.2 % (11.6-17.2); White Blood Count 8.4 th/mm3 (4.0-11.0)
[2018-06-06 04:33] LABS: Alanine Aminotransferase 69 U/L (12-78); Albumin 2.7 g/dL (3.4-5.0); Anion Gap 8 meq/L (5-15); Aspartate Aminotransferase 91 U/L (15-37); Blood Urea Nitrogen 13 mg/dL (7-18); Calcium 7.9 mg/dL (8.5-10.1); Carbon Dioxide 29.6 meq/L (21.0-32.0); Chloride 104 meq/L (98-107); Glomerular Filtration Rate 80 mL/min (>89); Magnesium 2.2 mg/dL (1.5-2.5); Phosphorus 1.9 mg/dL (2.5-4.9); Potassium 3.9 meq/L (3.5-5.1); Sodium 142 meq/L (136-145)
[2018-06-06 04:35] LABS: Alkaline Phosphatase 66 U/L (45-117); Total Protein 5.9 g/dL (6.4-8.2)
--- NOTE | 2018-06-06 05:06 | P.PNCA ---
Subjective Interval history: No acute events. No CP. Remains on Inotropes and IABP Physical Exam Vital signs: Vital Signs 06/05/18 07:00 06/05/18 07:50 06/05/18 08:00 Temperature 99.1 F Pulse Rate 81 88 Respiratory Rate 20 22 Blood Pressure 120/70 Pulse Oximetry 98 98 06/05/18 11:00 06/05/18 15:00 06/05/18 18:10 Temperature 98.9 F 99.1 F Pulse Rate 85 74 Respiratory Rate 20 20 Blood Pressure 128/45 L 119/70 Pulse Oximetry 98 98 97 06/05/18 19:00 06/05/18 20:00 06/05/18 23:00 Temperature 99.0 F 99.0 F Pulse Rate 84 77 Respiratory Rate 22 22 Blood Pressure 114/51 L 119/34 L Pulse Oximetry 95 95 96 06/06/18 00:00 06/06/18 03:00 06/06/18 04:00 Temperature 98.8 F Pulse Rate 76 Respiratory Rate 22 22 22 Blood Pressure 131/40 L Pulse Oximetry 96 Intake & Output 06/05/18 06/05/18 06/06/18 06:59 18:59 06:59 Intake Total 1180 / 1180 1900 / 1900 Output Total 700 / 700 2750 / 2750 Balance 480 / 480 -850 / -850 Weight 74.5 kg Intake: IV 500 / 500 1100 / 1100 Cordarone Inj 450 MG In D5W Inj 250 / 250 250 / 250 241 ML @ 1 MG/MIN 33.33 mls/hr IV.CONT TITRATE PRN Rx#: [id number] DOBUTamine 250 MG/250 ML Premix 250 / 250 350 / 350 250 mg In 250 ml @ 2.5 MCG/KG/ MIN 10.886 mls/hr IV.CONT . [id number] SUZIE Rx#:[id number] Heparin/D5W 25,000 U/250 mL 25, 250 / 250 000 unit In 250 ml @ 1,000 UNITS/HR 10 mls/hr IV.CONT TITRATE PRN Rx#:[id number] Oral 680 / 680 800 / 800 Output: Urine 700 / 700 2750 / 2750 Other: Date of Last Bowel Movement 06/03/18 06/03/18 # Bowel Movements 0 - Constitutional no acute distress - Routine Respiratory Exam Present: CTA bilaterally - Routine Cardiovascular Exam Present: RRR, S1, S2 - Routine Abdominal Exam Present: soft, normoactive bowel sounds - Routine Neurological Exam Present: alert, oriented X3 Assessment and Plan - Assessment (1) ST elevation myocardial infarction (STEMI) Code(s): I21.3 - ST elevation (STEMI) myocardial infarction of unspecified site Status: Acute Plan: Stable Hemodynamically. On Dobutamine and IABP. Plan for CABG 06/06. Appreciate Dr. Huntley. (2) Ventricular tachyarrhythmia Code(s): I47.2 - Ventricular tachycardia Status: Acute Plan: No further ventricular tachyarrhythmias. Continue IV Amiodarone for now. (3) Hyperlipidemia Code(s): E78.5 - Hyperlipidemia, unspecified Status: Chronic Plan: Overall suboptimal LDL level. Continue statin therapy, recheck lipid profile in 8 weeks. (1) ST elevation myocardial infarction (STEMI) Qualifiers: Involved coronary artery: LAD coronary artery Qualified Code(s): I21.02 - ST elevation (STEMI) myocardial infarction involving left anterior descending coronary artery (3) Hyperlipidemia Qualifiers: Hyperlipidemia type: pure hypercholesterolemia Qualified Code(s): E78.00 - Pure hypercholesterolemia, unspecified; E78.0 - Pure hypercholesterolemia
[2018-06-06] MEDS: SODIUM CHLOR 0.9% IV.CONT SCH ×2 (05:43→22:20)
[2018-06-06] MEDS: DOBUTAMINE IV.CONT SCH ×2 (05:43→22:20)
[2018-06-06] MEDS ORDERED: Heparin - SQ 10,000 UNITS/ML Vial ONE (07:00)
--- NOTE | 2018-06-06 07:29 | P.PNCC ---
Subjective Subjective Remarks/Hospital Course: This is a 72-year-old male with a relatively unremarkable past medical history who is active and was in his usual state of health when he had sudden onset crushing substernal chest pain radiating to his left shoulder around 6 PM tonight. EMS was called. In the ambulance, he had a V. fib arrest and was emergently defibrillated. He was not intubated at that time and mental status returned to baseline. In the emergency department he was found to have an ST elevation myocardial infarction. He was emergently taken to the [facility]. He has multivessel disease with essentially left main equivalent with severe distal left main disease, 90% proximal LAD disease, 70-80% circumflex disease, and moderate RCA disease. He has an acute EF of 25-30% by left ventriculography. Decision was made to forego intervening on the lesions and placed intra-arterial balloon pump in favor of cardiothoracic surgical evaluation. I evaluated the patient on arrival to the CVICU. He is awake and alert. He states that his chest pain is significantly improved from precatheterization. He does state that his chest is sore from the short round of CPR he received in the ambulance. He is on a dopamine infusion at 8 mcg/kg/ min on my evaluation. IVP is 1:1. Augmented mean arterial pressures 111 mmHg. He does endorse mild nausea. Denies vomiting, diarrhea, abdominal pain. Denies fever, chills, cough, new sputum production. He states that he can walk 2-3 blocks without getting winded. He does state the climbing 2 flights of stairs would make him significantly short of breath. He has a remote history of smoking when he was a teenager, does drink 2-3 drinks a week. His only family history of coronary artery disease was his grandmother who he said may have had a heart attack when she was very old. Remainder of review systems is negative. SUBJECTIVE: 06/04: Patient complains of mild chest pain and nausea, remains on IABP, dobutamine, and amio. Received lasix this morning. 06/05: No issues overnight, patient says that his nausea has resolved and reports that his chest "soreness" is improved after having a lidoderm patch placed. Remains on IABP. Awaiting CABG tomorrow. 06/06: No overnight events, NPO after midnight for OR today. Objective Vital Signs / I&O: Vital Signs 06/05/18 07:50 06/05/18 08:00 06/05/18 11:00 Temperature 98.9 F Pulse Rate 88 85 Respiratory Rate 22 20 Blood Pressure 128/45 L Pulse Oximetry 98 98 06/05/18 15:00 06/05/18 18:10 06/05/18 19:00 Temperature 99.1 F 99.0 F Pulse Rate 74 84 Respiratory Rate 20 22 Blood Pressure 119/70 114/51 L Pulse Oximetry 98 97 95 06/05/18 20:00 06/05/18 23:00 06/06/18 00:00 Temperature 99.0 F Pulse Rate 77 Respiratory Rate 22 22 Blood Pressure 119/34 L Pulse Oximetry 95 96 06/06/18 03:00 06/06/18 04:00 Temperature 98.8 F Pulse Rate 76 Respiratory Rate 22 22 Blood Pressure 131/40 L Pulse Oximetry 96 Intake & Output 06/05/18 06/06/18 06/06/18 18:59 06:59 18:59 Intake Total 1900 / 1900 490 / 490 Output Total 2750 / 2750 900 / 900 Balance -850 / -850 -410 / -410 Weight 71 kg Intake: IV 1100 / 1100 250 / 250 Cordarone Inj 450 MG In D5W Inj 250 / 250 241 ML @ 1 MG/MIN 33.33 mls/hr IV.CONT TITRATE PRN Rx#: [id number] DOBUTamine 250 MG/250 ML Premix 350 / 350 250 mg In 250 ml @ 2.5 MCG/KG/ MIN 10.886 mls/hr IV.CONT . [id number] SUZIE Rx#:[id number] Dobutrex Inj 500 MG In NS Inj 250 / 250 210 ML @ 6 MCG/KG/MIN 13.41 mls /hr IV.CONT .[id number] SUZIE Rx#: [id number] Heparin/D5W 25,000 U/250 mL 25, 250 / 250 000 unit In 250 ml @ 1,000 UNITS/HR 10 mls/hr IV.CONT TITRATE PRN Rx#:[id number] Oral 800 / 800 240 / 240 Output: Urine 2750 / 2750 900 / 900 Other: Date of Last Bowel Movement 06/03/18 Result Diagrams: 06/06/18 03:30 06/06/18 03:30 Objective Remarks: GEN: Well-appearing male lying in bed in no acute distress HEENT: NCAT, PERRL NECK: Trachea midline CARDIO: Regular rate and rhythm PULM: Lungs clear to auscultation bilaterally, normal work of breathing, O2 sats high 90s on 2L NC ABD: Soft, non-tender in all quadrants EXT: IABP present in RFA, dressings clean/ dry/ intact, no edema, palpable DP pulse SKIN: Warm and well-perfused NEURO: GCS 15, A&Ox3, no focal neuro deficits PSYCH: Appropriate affect, calm Assessment and Plan - Assessment and Plan Plan: Assessment: 72-year-old male with V fib arrest, ST elevation myocardial infarction, and new diagnosis of multivessel disease with left main equivalent high risk coronary artery lesions. CT surgery following for planned CABG tomorrow. Keep IABP 1-1. Very low threshold to start nitroglycerin for any chest pain. Keep Zoll pads on the patient and monitor closely on telemetry and treat for any malignant dysrhythmias. Critically ill and high risk for sudden cardiac . Active problems: ST elevation myocardial infarction Acute coronary syndrome Multivessel coronary artery disease Left main equivalent high risk coronary artery lesions Active coronary ischemia Out of hospital V. fib cardiac arrest Acute hypoxemia Plan: Ventricular fibrillation, cardiac arrest * Amio @ 0.5, currently in sinus, continue for arrhythmia prevention * Keep K+ >4.0 and Mg++ >2.0, ICU electrolyte protocol * Keep on telemetry * Zoll pads in place * LV ventriculogram during cardiac cath showed severe anterior wall and apical hypokinesis with EF of 25-30% * Moderate left main disease and severe LAD/ ostial 1st obtuse marginal Severe multi-vessel coronary artery disease, STEMI * Continue heparin drip, aspirin, statin * Continue dobutamine for augmented MAP, currently @ 6 (changed to double concentrated yesterday) * Continue intra-arterial balloon pump 1:1 * Continue to lie flat * Very low threshold for nitroglycerin for any chest pain * CABG today Hypoxemia * Duresed nicely overnight, fluid status optimized * O2 sats 98% on 2L NC * PRN nebs SCDs Pepcid Requires continued ICU level of care, stable but remains critically ill and will need close post-op monitoring Counseling/ Coordination of Care: Total critical care time: 38 minutes. This includes examining the patient, gathering history from someone other than the patient (i.e., chart review), discussing the patient's care with other providers, managing the patient's blood pressure via vasoactive medications and external device, interpreting radiology studies, interpreting laboratory studies, managing the patient's pain and nausea, re-evaluation at frequent intervals, and documentation. All critical care time is separate and exclusive of procedures, teaching, and patient/ family updates. Code Status: Full
[2018-06-06] MEDS ORDERED: Calcium Chloride Inj 1 GM/10 ML Syringe IV.CONT ONE (08:00)
[2018-06-06] MEDS ORDERED: Aminocaproic Acid Inj 5,000 MG/20 ML Vial IV.CONT ONE (08:00)
[2018-06-06] MEDS ORDERED: Dexmedetomidine Inj 200 MCG/2 ML Vial IV.CONT ONE (08:00)
[2018-06-06] MEDS ORDERED: Phenylephrine/NS 1000 MCG/10ML Syringe OTHER ONE (08:00)
[2018-06-06] MEDS ORDERED: Nitroglycerin Drip Premix 50 MG/250 ML BOTTLE IV.SIG ONE (08:00)
[2018-06-06] MEDS ORDERED: Protamine Sulfate Inj 250 MG/25 ML Vial IV.CONT ONE (08:00)
[2018-06-06] MEDS ORDERED: Lidocaine PF 1% Inj 5 ML Syringe INFILTRATN ONE (08:00)
[2018-06-06] MEDS ORDERED: Dextrose 5% in Water Inj 100 ML IV.SIG ONE (08:00)
[2018-06-06] MEDS ORDERED: Heparin - SQ 10,000 UNITS/ML Vial OTHER ONE (08:30)
[2018-06-06] MEDS ORDERED: Sodium Chlor 0.9% Inj 500 ML IV.SIG ONE (08:30)
[2018-06-06] MEDS ORDERED: Sodium Chlor 0.9% Inj 200 ML IV.SIG ONE (08:30)
[2018-06-06] MEDS: Mupirocin 2% Nasal Oint Topical Syringe EACH NARE SCH ×2 (11:45→20:42)
[2018-06-06] MEDS ORDERED: Potassium Chlor 40 mEq Premix 40 MEQ/100 ML PIGGYBACK ONE (11:54)
[2018-06-06] MEDS ORDERED: Dexmedetomidine Inj 200 MCG in Sodium Chlor 0.9% Inj 48 ML IV.CONT PRN (12:03)
[2018-06-06] MEDS ORDERED: Magnesium Sulfate Inj 2 GM in Sodium Chlor 0.9% Inj 96 ML IV.SIG PRN ×4 (12:03)
[2018-06-06] MEDS ORDERED: fentaNYL Citrate Inj 100 MCG/2 ML Ampul IV.PUSH PRN (12:03)
[2018-06-06] MEDS ORDERED: Insulin Regular (For Infusion) 100 UNIT in Sodium Chlor 0.9% Inj 99 ML IV.CONT PRN (12:03)
[2018-06-06] MEDS ORDERED: Calcium Chloride Inj 1 GM/10 ML Syringe IV.PUSH PRN (12:03)
[2018-06-06] MEDS ORDERED: Calcium Chloride Inj 1 GM in Sodium Chlor 0.9% Inj 100 ML IV.SIG PRN (12:03)
[2018-06-06] MEDS ORDERED: Metoprolol Inj 5 MG/5 ML Vial IV.PUSH PRN (12:03)
[2018-06-06] MEDS ORDERED: Phenylephrine Inj 40 MG in Sodium Chlor 0.9% Inj 496 ML IV.CONT PRN (12:03)
[2018-06-06] MEDS ORDERED: Post-op Orders (for Pharmacy) OTHER STA (12:03)
[2018-06-06] MEDS ORDERED: Dextrose 50% in Water 50 ML Vial IV.PUSH PRN (12:03)
[2018-06-06] MEDS ORDERED: Potassium Chlor 20 mEq Premix 20 MEQ/100 ML PIGGYBACK IV.SIG PRN ×3 (12:03)
[2018-06-06] MEDS ORDERED: Morphine Sulfate Inj 2 MG/ML Vial IV.PUSH PRN (12:03)
[2018-06-06] MEDS ORDERED: RESP: Racemic Epinephrine 2.25% 0.5 ML Neb NEB PRN (12:03)
[2018-06-06] MEDS ORDERED: Ketorolac Inj 30 MG/ML (IVP) Vial IV.PUSH PRN (12:03)
--- NOTE | 2018-06-06 12:14 | P.OP ---
Date of procedure: 06/06/18 Anesthesia: VIVIA Surgeon: Korin Huntley MD Operation and Findings: PREPROCEDURE DIAGNOSES 1. Severe Multi Vessel Coronary Artery Disease. 2. Acute myocardial infarction 3. Ventricular fibrillation arrest 4. Cardiogenic shock with IABP placement 5. Severe left ventricular dysfunction (EF 25%) 6. Inotropic support 7. Pulmonary insufficiency 8. Sternal fracture POSTPROCEDURE DIAGNOSES Same SURGICAL PROCEDURE 1. Urgent Off-pump Coronary Artery Bypass Grafting x 2 with Left Internal Mammary Artery (HERNANDEZ) to Left Anterior Descending (LAD), reverse saphenous vein graft to Obtuse Marginal branch of the Left Circumflex artery 2. Left leg Endoscopic Vein [place] 3. Stabilization of sternal fracture 4. Intraoperative Vein Mapping. SURGEON Korin Huntley MD LEAD SHIPPER SANDRA Aleman ANESTHESIA General endotracheal DUTY MANAGER Chris Clarke, ANASTASIA Ocampo MD PREPARATION ChloraPrep. COUNTS Needle, sponge, and instrument counts were correct. DRAINS Two 32-Khmer mediastinal tubes. COMPLICATIONS None. INDICATIONS FOR PROCEDURE The patient is a 72-year-old presenting with chest pain and ventricular fibrillation arrest necessitating CPR and defibrillation. Patient was noted to have 2 vessel coronary artery disease. The patient is being brought to the operating room for urgent surgical revascularization therapy. PROCEDURE Patient was brought to the operating room and placed supine on the OR table. Following the induction of adequate general endotracheal anesthesia and placement of appropriate monitoring devices, intraoperative vein mapping was performed which revealed marginal-caliber conduit in bilateral lower extremities. The patient was then prepped and draped in standard sterile fashion. Next, 2500 units of intravenous heparin was given. The left greater saphenous vein was harvested endoscopically. This appeared to be a small but usable-caliber conduit. Simultaneously, a median sternotomy was performed and the left internal mammary artery dissected free off the posterior sternal table. Of note there were 2 areas in the mid and distal sternum where it was fractured from the previous CPR with associated underlying bruising. The patient was systemically heparinized and anticoagulation monitored by serial ACT measurements. The internal mammary artery had excellent pulsatile flow in it and was a good-caliber conduit. The pericardium was then divided in the midline, the cradle created and targets analyzed. At this point, all anastomoses were performed in a beating-heart fashion using the Fi.ttt stabilizing system. The left internal mammary artery was anastomosed to the proximal LAD (2.25 mm) in an end-to-side fashion using 7-0 Prolene. Segment of saphenous vein graft was then anastomosed to the OM1 (2 mm) in an end-to-side fashion using 7-0 Prolene. The OM 2 territory was explored, but the target was too small to bypass as it emerged from the AV groove. The proximal anastomosis was then constructed to the ascending aorta in a running manner using 6-0 Prolene. All anastomotic sites were inspected and appeared to be hemostatic and patent. Protamine solution was given. Strict hemostasis was assured. The closure was undertaken. 2 chest tubes were placed. The pericardium was reapproximated in the midline. The sternum was approximated using sternal wires. The areas of the sternal fracture were carefully reapproximated with sternal wires for complete stabilization. The muscular and fascial layer were then closed in 3 layers. The endoscopic vein harvest site was closed in 2 layers. The patient tolerated the procedure well and was transferred to CVICU in stable condition.
[2018-06-06] MEDS ORDERED: fentaNYL Citrate Inj 250 MCG/5 ML Ampul ONE (12:52)
--- NOTE | 2018-06-06 13:07 | XR ---
EXAM DATE: 06/06/2018 1:03 PM EDT AGE/SEX: 72 years / Male INDICATIONS: S/P CABG. CLINICAL DATA: This is the patient's initial encounter. Patient reports that signs and symptoms have been present for 1 day and indicates a pain score of Nonresponsive. MEDICAL/SURGICAL HISTORY: None. None. COMPARISON: [facility] [place], CHEST 1V SINGLE AP, 06/04/2018. . FINDINGS: Single portable supine view of the chest demonstrates interval intubation with endotracheal tube at t he level of the clavicles. There is a chest tube overlying the sternum and a right-sided central line and within the distal SVC. Postsurgical changes of CABG surgery. Heart size appears normal. The lung s are grossly clear. Left apical directed chest tube areas CONCLUSION: Postsurgical changes related to prior CABG surgery with interval intubation and placement of chest tu be and mediastinal drainage. Improved lung exam. Electronically signed by: Misti Weathers MD 06/06/2018 1:06 PM EDT
[2018-06-06] MEDS: ceFAZolin Inj 2,000 MG in Sodium Chlor 0.9% Inj 80 ML IV.SIG SCH ×2 (13:17→20:41)
[2018-06-06] MEDS: Albumin Human 5% Inj 250 ML IV.SIG PRN ×2 (13:18→13:52)
[2018-06-06 13:48] LABS: Hematocrit 33.5 % (39.0-51.0); Mean Corpuscular HGB Conc 32.9 % (32.0-36.0); Mean Corpuscular Hemoglobin 32.6 pg (27.0-34.0); Mean Corpuscular Volume 99.2 fL (80.0-100.0); Mean Platelet Volume 8.3 fL (7.0-11.0); Platelet Count 155 th/mm3 (150-450); Red Blood Count 3.38 mil/mm3 (4.50-5.90); White Blood Count 14.5 th/mm3 (4.0-11.0)
[2018-06-06 13:59] LABS: Activated Partial Thrombo Time 24.7 sec (24.3-30.1); INR 1.1 Ratio; Prothrombin Time 11.5 sec (9.8-11.6)
--- NOTE | 2018-06-07 04:03 | XR ---
EXAM DATE: 06/07/2018 3:48 AM EDT AGE/SEX: 72 years / Male INDICATIONS: Shortness of breath, possible pneumothorax. CLINICAL DATA: This is the patient's subsequent encounter. Patient reports that signs and symptoms h ave been present for 2 days and indicates a pain score of 8/10. MEDICAL/SURGICAL HISTORY: Myocardial infarction. CAD CABG. COMPARISON: [facility], CHEST 1V SINGLE AP, 06/06/2018. . FINDINGS: Right central line in superior vena cava. Central and left chest tube without pneumothorax. Basilar a irspace disease, left greater than right with small left effusion. No pneumothorax. CONCLUSION: Extubation. No pneumothorax. Stable basilar airspace disease. Electronically signed by: Koko Diaz MD 06/07/2018 4:01 AM EDT
[2018-06-07] MEDS: SODIUM CHLOR 0.9% IV.CONT SCH ×2 (04:09→17:05)
[2018-06-07] MEDS: ceFAZolin Inj 2,000 MG in Sodium Chlor 0.9% Inj 80 ML IV.SIG SCH ×3 (04:09→21:18)
[2018-06-07] MEDS: DOBUTAMINE IV.CONT SCH ×2 (04:09→17:05)
[2018-06-07 04:14] LABS: Hematocrit 28.1 % (39.0-51.0); Hemoglobin 9.4 gm/dL (13.0-17.0); Mean Corpuscular HGB Conc 33.6 % (32.0-36.0); Mean Corpuscular Hemoglobin 33.1 pg (27.0-34.0); Mean Corpuscular Volume 98.6 fL (80.0-100.0); Mean Platelet Volume 8.5 fL (7.0-11.0); Platelet Count 133 th/mm3 (150-450); Red Blood Count 2.85 mil/mm3 (4.50-5.90); Red Cell Distribution Width 14.2 % (11.6-17.2); White Blood Count 8.7 th/mm3 (4.0-11.0)
[2018-06-07 04:28] LABS: Calcium 7.6 mg/dL (8.5-10.1); Carbon Dioxide 25.2 meq/L (21.0-32.0); Magnesium 1.9 mg/dL (1.5-2.5); Potassium 4.6 meq/L (3.5-5.1)
[2018-06-07 04:29] LABS: Phosphorus 2.8 mg/dL (2.5-4.9)
[2018-06-07] MEDS: Mupirocin 2% Nasal Oint Topical Syringe EACH NARE SCH ×2 (08:35→21:03)
--- NOTE | 2018-06-07 10:23 | P.PNCC ---
Subjective Subjective Remarks/Hospital Course: This is a 72-year-old male with a relatively unremarkable past medical history who is active and was in his usual state of health when he had sudden onset crushing substernal chest pain radiating to his left shoulder around 6 PM tonight. EMS was called. In the ambulance, he had a V. fib arrest and was emergently defibrillated. He was not intubated at that time and mental status returned to baseline. In the emergency department he was found to have an ST elevation myocardial infarction. He was emergently taken to the Plant Technician/Control Room Operator. He has multivessel disease with essentially left main equivalent with severe distal left main disease, 90% proximal LAD disease, 70-80% circumflex disease, and moderate RCA disease. He has an acute EF of 25-30% by left ventriculography. Decision was made to forego intervening on the lesions and placed intra-arterial balloon pump in favor of cardiothoracic surgical evaluation. I evaluated the patient on arrival to the CVICU. He is awake and alert. He states that his chest pain is significantly improved from precatheterization. He does state that his chest is sore from the short round of CPR he received in the ambulance. He is on a dopamine infusion at 8 mcg/kg/ min on my evaluation. IVP is 1:1. Augmented mean arterial pressures 111 mmHg. He does endorse mild nausea. Denies vomiting, diarrhea, abdominal pain. Denies fever, chills, cough, new sputum production. He states that he can walk 2-3 blocks without getting winded. He does state the climbing 2 flights of stairs would make him significantly short of breath. He has a remote history of smoking when he was a teenager, does drink 2-3 drinks a week. His only family history of coronary artery disease was his grandmother who he said may have had a heart attack when she was very old. Remainder of review systems is negative. SUBJECTIVE: 06/04: Patient complains of mild chest pain and nausea, remains on IABP, dobutamine, and amio. Received lasix this morning. 06/05: No issues overnight, patient says that his nausea has resolved and reports that his chest "soreness" is improved after having a lidoderm patch placed. Remains on IABP. Awaiting CABG tomorrow. 06/06: No overnight events, NPO after midnight for OR today. 06/07: POD 1 s/p off-pump CABG x 2 (HERNANDEZ-->LAD, SVG-->OM). IABP still in place, weaning to 1:3 this AM. dobutamine at 5 mcg/kg/min. extubated and doing well on nc o2. denies complaints. states he feels better than yesterday. chest tubes with ~1L total EBL since OR, now mostly serosanguineous output. uop adequate. Objective Vital Signs / I&O: Vital Signs 06/06/18 12:03 06/06/18 12:30 06/06/18 12:33 Temperature 36.2 C L 37.0 C Pulse Rate Respiratory Rate 17 Blood Pressure Pulse Oximetry 99 93 L 06/06/18 12:45 06/06/18 12:50 06/06/18 13:04 Temperature 36.2 C L Pulse Rate 78 Respiratory Rate 20 Blood Pressure 97/34 L Pulse Oximetry 97 96 90 L 06/06/18 14:00 06/06/18 15:00 06/06/18 15:30 Temperature 36.5 C Pulse Rate 74 Respiratory Rate 18 Blood Pressure 110/72 111/65 Pulse Oximetry 98 97 06/06/18 16:00 06/06/18 17:00 06/06/18 17:08 Temperature Pulse Rate 76 Respiratory Rate 18 20 Blood Pressure 113/64 108/70 Pulse Oximetry 93 L 06/06/18 17:56 06/06/18 19:00 06/06/18 20:12 Temperature 37.0 C 37.2 C 37.0 C Pulse Rate 79 Respiratory Rate 22 Blood Pressure 116/34 L Pulse Oximetry 94 L 06/06/18 21:11 06/06/18 21:12 06/06/18 23:00 Temperature 37.3 C Pulse Rate 83 86 Respiratory Rate 20 22 Blood Pressure 103/28 L Pulse Oximetry 99 96 06/07/18 00:00 06/07/18 03:00 06/07/18 03:27 Temperature 37.7 C H Pulse Rate 88 88 Respiratory Rate 22 22 14 Blood Pressure 126/39 L Pulse Oximetry 98 06/07/18 07:00 06/07/18 08:22 Temperature 37.2 C Pulse Rate 98 H 85 Respiratory Rate 18 16 Blood Pressure 116/59 L Pulse Oximetry 94 L 95 Intake & Output 06/06/18 06/07/18 06/07/18 18:59 06:59 18:59 Intake Total 5400 / 5400 1750 / 1750 250 / 250 Output Total 2215 / 2215 830 / 830 Balance 3185 / 3185 920 / 920 250 / 250 Weight 74 kg Intake: IV 2400 / 2400 510 / 510 250 / 250 KCl 40 mEq Premix Inj 40 meq In 100 / 100 100 ml @ 0 mls/hr .ROUTE .[facility] Rx#:[id number] Cordarone Inj 450 MG In D5W Inj 250 / 250 250 / 250 241 ML @ 1 MG/MIN 33.33 mls/hr IV.CONT TITRATE PRN Rx#: [id number] Dobutrex Inj 500 MG In NS Inj 250 / 250 210 ML @ 6 MCG/KG/MIN 13.41 mls /hr IV.CONT .[id number] [facility] Rx#: [id number] Ofirmev Inj 1,000 mg In 100 ml 100 / 100 200 / 200 @ 400 mls/hr IV.SIG Q6H [facility] Rx# :[id number] Buminate 5% Inj 250 ML @ 250 500 / 500 mls/hr IV.SIG UNSCH PRN Rx#: [id number] Calcium Chloride Inj 1 GM In NS 110 / 110 Inj 100 ML @ 100 mls/hr IV.SIG PRN PRN Rx#:[id number] LR 1000 mL Inj 1,000 ML @ 30 1000 / 1000 mls/hr IV.SIG .Q24H [facility] Rx#: [id number] Ancef Inj 2,000 MG In NS Inj 80 200 / 200 200 / 200 ML @ 200 mls/hr IV.SIG Q8H [facility] Rx#:[id number] Oral 240 / 240 Anesthesia Amount 1500 / 1500 Other 1000 / 1000 1000 / 1000 Cell Saver Amount 500 / 500 Output: Estimated Blood Loss 1000 / 1000 Urine Amount (Catheter) 635 / 635 450 / 450 Indwelling Temp Sensing 635 / 635 450 / 450 Catheter Chest Tube Drainage 580 / 580 380 / 380 Pleural/Mediastinal 580 / 580 380 / 380 Other: Other Intake Source Saline Solution Saline Solution Date of Last Bowel Movement 06/03/18 06/03/18 06/03/18 Result Diagrams: 06/07/18 03:40 06/07/18 03:40 Objective Remarks: GEN: elderly male, lying in bed, flat for IABP HEENT: NCAT, PERRL NECK: Trachea midline CARDIO: Regular rate and rhythm, sinus. PULM: Lungs clear to auscultation bilaterally, normal work of breathing, O2 sats high 90s on NC ABD: Soft, non-tender in all quadrants EXT: IABP present in RFA 1:3, dressings clean/ dry/ intact, no edema, palpable DP pulse SKIN: Warm and well-perfused NEURO: GCS 15, A&Ox3, no focal neuro deficits PSYCH: Appropriate affect, calm Assessment and Plan - Assessment and Plan Plan: Assessment: 72-year-old male with V fib arrest, ST elevation myocardial infarction, and new diagnosis of multivessel disease with left main equivalent high risk coronary artery lesions. Now POD 1 s/p off-pump CABG x 2 (HERNANDEZ-->LAD , SVG-->OM). will remove IABP today. keep dobutamine until this afternoon to ensure cardiac stability in the setting of removal of mechanical support. start gentle diuresis. plan to wean inotropes off by this afternoon. OOB after IABP removed. Active problems: ST elevation myocardial infarction Acute coronary syndrome Multivessel coronary artery disease Left main equivalent high risk coronary artery lesions Active coronary ischemia Out of hospital V. fib cardiac arrest Acute hypoxemia- resolved s/p off pump CABG x 2 (HERNANDEZ-->LAD, SVG-->OM) 06/06 Ischemic cardiomyopathy, EF 20-25% Plan: - remove IABP - dobutamine to 2.5 mcg/kg/min. if remains stable, will wean off later today - lasix 40mg iv x 1. - hold on beta blockade until tomorrow - d/c amio drip: start amio 400mg po q12h. - keep on telemetry - d/c heparin drip - ASA - statin - will need ACEI, maybe later today or tomorrow - frequent neurovascular checks - watch uop closely: keep gar today. - OOB with PT - wean o2 by nc for goal spo2 > 92% - prn nebs - ppi - scd's Critical care medicine will continue to follow along while patient is in the CVICU. when transfers out of CVICU, will transition primary attending of record to the CVICU team.
[2018-06-07] MEDS: Amiodarone 200 MG Tablet PO SCH ×2 (10:42→21:19)
--- NOTE | 2018-06-07 12:27 | P.PNCV ---
- Note Subjective/Hospital Course: Pleasant 72-year-old gentleman with no prior identifiable cardiac history who presents with new onset chest pain. Patient called EMS and was being transferred to the hospital when he suffered a ventricular fibrillation arrest necessitating defibrillation and manual CPR. Following presentation he was noted to have an STEMI and underwent emergent cardiac catheterization by Dr. Tim. Coronary angiography revealed moderate left main stenosis with associated critical LAD and circumflex disease, with minimal nonobstructive right coronary artery lesions. This is in the setting of severe left ventricular dysfunction with estimated EF 25%. Intra-aortic balloon pump was placed, patient was begun on inotropic therapy and transferred to CVICU for further management. 06/05 Clinically and hemodynamically stable with IABP and Dobutamine support Exam - unchanged OR in am 06/06 : PREPROCEDURE DIAGNOSES 1. Severe Multi Vessel Coronary Artery Disease. 2. Acute myocardial infarction 3. Ventricular fibrillation arrest 4. Cardiogenic shock with IABP placement 5. Severe left ventricular dysfunction (EF 25%) 6. Inotropic support 7. Pulmonary insufficiency 8. Sternal fracture surgery: 1. Urgent Off-pump Coronary Artery Bypass Grafting x 2 with Left Internal Mammary Artery (HERNANDEZ) to Left Anterior Descending (LAD), reverse saphenous vein graft to Obtuse Marginal branch of the Left Circumflex artery 2. Left leg Endoscopic Vein Chestnut 3. Stabilization of sternal fracture 06/07 on nasal cannula IABP : 1:3 3am -5am tolerated well placed back on 1:3 for one hour this am / dobutamine decreased to 2.5mcq on nasal cannula, pain controlled , chest tube in place no air leak left fem rachel removed this am Right Fem IABP removed / see procedure note plan is to wean off dobutamine this afternoon, if BP tolerates Objective: Vital Signs - 24 hr 06/06/18 12:30 06/06/18 12:33 06/06/18 12:45 Temperature 98.6 F Pulse Rate Respiratory Rate 17 Blood Pressure Pulse Oximetry 99 93 L 97 06/06/18 12:50 06/06/18 13:04 06/06/18 14:00 Temperature 97.2 F L Pulse Rate 78 Respiratory Rate 20 Blood Pressure 97/34 L 110/72 Pulse Oximetry 96 90 L 06/06/18 15:00 06/06/18 15:30 06/06/18 16:00 Temperature 97.7 F Pulse Rate 74 Respiratory Rate 18 18 Blood Pressure 111/65 113/64 Pulse Oximetry 98 97 06/06/18 17:00 06/06/18 17:08 06/06/18 17:56 Temperature 98.6 F Pulse Rate 76 Respiratory Rate 20 Blood Pressure 108/70 Pulse Oximetry 93 L 06/06/18 19:00 06/06/18 20:12 06/06/18 21:11 Temperature 99.0 F 98.6 F Pulse Rate 79 83 Respiratory Rate 22 20 Blood Pressure 116/34 L Pulse Oximetry 94 L 06/06/18 21:12 06/06/18 23:00 06/07/18 00:00 Temperature 99.1 F Pulse Rate 86 Respiratory Rate 22 22 Blood Pressure 103/28 L Pulse Oximetry 99 96 06/07/18 03:00 06/07/18 03:27 06/07/18 07:00 Temperature 99.8 F H 98.9 F Pulse Rate 88 88 98 H Respiratory Rate 22 14 18 Blood Pressure 126/39 L 116/59 L Pulse Oximetry 98 94 L 06/07/18 08:22 06/07/18 10:39 06/07/18 11:00 Temperature 98.3 F Pulse Rate 85 95 H Respiratory Rate 16 18 18 Blood Pressure 131/74 Pulse Oximetry 95 94 L GENERAL: A&O x 3 SKIN: Warm and dry. prevena dressing to chest , incision to right leg in intact HEAD: Normocephalic. EYES: No scleral icterus. No injection or drainage. NECK: Supple, trachea midline. No JVD or lymphadenopathy. CARDIOVASCULAR: Regular rate and rhythm without murmurs, gallops, or rubs. IABP right groin removed , good distal RESPIRATORY: Breath sounds equal bilaterally. No accessory muscle use. chest tube to wall suction, no air leak , drained 380cc/ 12 hrs GASTROINTESTINAL: Abdomen soft, non-tender, nondistended. : gar cath in place MUSCULOSKELETAL: No cyanosis, or edema. BACK: Nontender without obvious deformity. No CVA tenderness. Labs: Laboratory Results - last 12 hr 06/04/18 06/07/18 06/07/18 13:05 02:05 03:40 WBC 8.7 RBC 2.85 L Hgb 9.4 L Hct 28.1 L MCV 98.6 MCH 33.1 MCHC 33.6 RDW 14.2 Plt Count 133 L MPV 8.5 Sodium Potassium Chloride Carbon Dioxide Anion Gap BUN Creatinine Estimated GFR POC Glucose 138 H Random Glucose Calcium Phosphorus Magnesium MTS Gel Crossmatch See Detail 06/07/18 06/07/18 06/07/18 03:40 04:15 05:19 WBC RBC Hgb Hct MCV MCH MCHC RDW Plt Count MPV Sodium 139 Potassium 4.6 Chloride 105 Carbon Dioxide 25.2 Anion Gap 9 BUN 16 Creatinine 0.96 Estimated GFR 77 L POC Glucose 129 H 110 Random Glucose 114 H Calcium 7.6 L Phosphorus 2.8 Magnesium 1.9 MTS Gel Crossmatch 06/07/18 06/07/18 07:05 08:51 WBC RBC Hgb Hct MCV MCH MCHC RDW Plt Count MPV Sodium Potassium Chloride Carbon Dioxide Anion Gap BUN Creatinine Estimated GFR POC Glucose 112 H 108 Random Glucose Calcium Phosphorus Magnesium MTS Gel Crossmatch Result Diagrams: 06/07/18 03:40 06/07/18 03:40 Telemetry: NSR - Plan (1) Severe left ventricular systolic dysfunction Plan: EF 25 % s/p Vfib arrest on amiodarone will need SHIRLEY when BP tolerates eval for spironolactone and coreg also will discuss with Dr Tim (2) ST elevation myocardial infarction (STEMI) (4) Hyperlipidemia Plan: on statin heart healthy diet (5) S/P CABG x 2 Plan: ASA, statin , start BB when BP tolerates OOB, ambulate nebs ezpap (2) ST elevation myocardial infarction (STEMI) Qualifiers: Involved coronary artery: LAD coronary artery Qualified Code(s): I21.02 - ST elevation (STEMI) myocardial infarction involving left anterior descending coronary artery (4) Hyperlipidemia Qualifiers: Hyperlipidemia type: pure hypercholesterolemia Qualified Code(s): E78.00 - Pure hypercholesterolemia, unspecified; E78.0 - Pure hypercholesterolemia
--- NOTE | 2018-06-07 12:40 | P.DCO ---
- Diagnosis (1) ST elevation myocardial infarction (STEMI) (3) Hyperlipidemia - Home Health Nursing Order: Medical education, Signs/symptoms of disease process, Medication education-adverse effect, Wound care and dressing changes, Nursing assessment with vital signs Instructions: PREVENA Single Use Negative Wound Therapy System Caregiver Instruction Sheet 1. A Prevena dressing system was applied to the chest incision during surgery , to promote wound healing. It works via a suction device (negative pressure wound therapy) to remove low to moderate levels of exudate (drainage) and infectious materials. We recommend that the device stay in place for up to seven days, from day of surgery. 2. Day of Surgery___/06/15 Day of Removal / 3. The dressing should only be removed by a health critical care transport nurse. Please arrange removal of device to coincide with Home Health visit and or with Nursing staff at Rehab 4. If skin reddening or irritation of skin occurs, or excessive drainage, please notify the Cardiovascular Surgeons office at [phone]. 5. Light showering is permissible; however the pump should be disconnected and placed in safe location, where it will not get wet. The dressing should not be exposed to direct spray or submerged in water. No bath tub / shower only. Ensure the end of the tubing attached to the dressing is facing down so that water does not enter the top of the tube. 6. To remove Prevena dressing: press purple button to turn off device / remove the suction. Then disconnect the tubing from the pump. The fixation strips should be stretched away from the skin and the dressing lifted at one corner and peeled back until it has been fully removed. 7. After removal, it is ok to shower daily using liquid dial soap and clean wash cloth, rinse and pat dry, and leave incision open to air dry. For any concerns regarding Prevena dressing, and or wounds, please contact Beverly Mortensen, patient navigator at [phone] or notify the Cardiovascular Surgeons office at [phone]. Heart and Vascular Surgery patients *Special attention to sternal dressing Mandatory frequency Assess and evaluation, 4 days in a row The next week 3X week 2 times a week for 4 weeks 1 time a week for 5 weeks Schedule Heart and Vascular patients for full 60 day certification period Initial visit Review Open Heart Surgery Discharge Instructions (Sternal precautions, Activity, Elastic hose, Incision care, Driving, Incentive spirometry, Smoking, [place], Work and other) Need Betadine to paint incision Medication reconciliation Importance of follow up care/ check on appointments Make calendar record temperature daily When to call [facility] at Home nurse, review instructions, phone list Incentive Spirometry, demonstration Visit 1- Begin discharge instruction for patient family and/ or caregiver using teach back method- Signs and symptoms of infection Disease characteristics Medicines and side effects Foods and nutrition/ appetite Infection control/ hand washing/ hygiene Visit 2- Continue teaching Discharge instructions- include additional information on smoking cessation , sternal dressing (sternal vac) Visit 3- Continue teaching- Cough and deep breathing, incision monitoring. Choose my plate Visit 4- Continue teaching- Discuss limitations Discuss how they are feeling Discuss progress toward goals Remaining visits- continue teaching and monitoring For any questions please call : Thursday 8am-5pm Heart & Vascular Surgery Office ( Dr. Huntley & Dr. Javier), After Hours / Nights (5pm -8am) Weekends and Holidays Please call [facility] Card[facility] Unit ([facility]) Charge Nurse Incentive spirometry Q1 hr x 10, while awake, also use acapella device hourly whole awake Sternal Breast Bone Precautions: NO pushing or pulling, ( pt must use sternal pillow to support chest with all activities and with coughing ( takes up to 3 months breast bone to heal ) Daily incision care: ok to shower daily, no tub bath. Wash all incisions with liquid dial soap, clean wash cloth to each site, rinse and pat dry. Observe for any signs of infection, such as drainage which is dark yellow, esteban, green or foul smelling. Immediately report to the surgeon any drainage from the chest incision, or legs, and for any abnormal drainage from the chest tube sites. Notify surgeon if any temp >101.5 degrees F. When specialty dressing removed/ or if you do not have one, continue to shower daily as above, then rinse and pat incision dry and paint with betadine daily x 5 days. Allow steri strips to fall off if you have any. Avoid lotions, creams, salves, oils, etc. for the first month Please see attached forms for additional instructions regarding post Open Heart specialty wound vacuum dressings. KALYN or Prevena , Dressing to be removed by Nursing staff on __06/13/18 F/U appointment: as per DC instructions: PCP in 2 weeks, CV surgeon 2 weeks, Air Bag Builder 3-4 weeks For any questions regarding incisions/ dressing / meds / post op care or above Symptoms, Thursday 8am-5pm Heart & Vascular Surgery Office ( Dr. Huntley & Dr. Javier), After Hours / Nights (5pm -8am) Weekends and Holidays Please call [facility] Cardiac [facility] Unit (CIC) Charge Nurse - Certification I have seen patient Mehrdad Vaca on 06/07/18. My clinical findings support the need for the requested home health care services because: Deconditioned with increased weakness I certify that my clinical findings support that this patient is homebound because: Post-op weakness (1) ST elevation myocardial infarction (STEMI) Qualifiers: Involved coronary artery: LAD coronary artery Qualified Code(s): I21.02 - ST elevation (STEMI) myocardial infarction involving left anterior descending coronary artery (3) Hyperlipidemia Qualifiers: Hyperlipidemia type: pure hypercholesterolemia Qualified Code(s): E78.00 - Pure hypercholesterolemia, unspecified; E78.0 - Pure hypercholesterolemia
--- NOTE | 2018-06-07 12:47 | P.PCN ---
Date of procedure: 06/07/18 Pre-op diagnosis: 1. Urgent Off-pump Coronary Artery Bypass Grafting x 2 with Left Internal Post-op diagnosis: other Procedure: IABP removal right groin IABP removed without difficulty hemostasis obtained , direct pressure held x 20 min by myself then additional 10 min per nursing no hematoma or adverse affect pressure dressing applied, Bedrest x 6 hours , then ok to be OOB pt tolerated procedures well Anesthesia: none
[2018-06-07] MEDS ORDERED: Sod Phosphate/Sod Biphosphate (Adult) Enema 133 ML Bottle RECTAL PRN (13:18)
[2018-06-07] MEDS ORDERED: Dextrose 50% in Water 50 ML Vial IV.PUSH PRN (13:18)
[2018-06-07] MEDS ORDERED: Bisacodyl 10 MG Supp RECTAL PRN (13:18)
[2018-06-07] MEDS: Insulin NovoLOG Aspart Correctional Sugar Inj SQ SCH ×3 (14:45→21:25)
--- NOTE | 2018-06-07 15:10 | P.DIET ---
Nutritional Evaluation Screening comments: MDC for diet education s/p CABG x 2 received 06/07. Patient Navigator to provide education. Consult RD if complexities with diet education arise.
--- NOTE | 2018-06-07 16:24 | ECG ---
Date Performed: 06/07/2018 Time Performed: 05:18:12 PTAGE: 72 years EKG: Sinus rhythm Low limb lead voltage. Anteroseptal infarct - age undetermined Recent anterior infarct witch is a mi ld change from the previous Tracing. Clinical correlation is recommended Abnormal ECG PREVIOUS TRACING : 06/04/2018 03.51.02 DOCTOR: Jesus Ferraro Interpretating Date/Time 06/07/2018 16:23:37
[2018-06-07] MEDS: Docusate Sodium 100 MG Capsule PO SCH (21:19)
[2018-06-08 06:03] LABS: Baso % (Auto) 0.3 % (0.0-2.0); Eos # (Auto) 0.1 th/mm3 (0.0-0.4); Eos % (Auto) 1.2 % (0.0-4.0); Hematocrit 26.3 % (39.0-51.0); Lymph # (Auto) 1.1 th/mm3 (1.0-4.8); Lymph % (Auto) 12.2 % (9.0-44.0); Mean Corpuscular HGB Conc 34.2 % (32.0-36.0); Mean Corpuscular Hemoglobin 33.4 pg (27.0-34.0); Mean Corpuscular Volume 97.7 fL (80.0-100.0); Mean Platelet Volume 8.6 fL (7.0-11.0); Mono # (Auto) 1.2 th/mm3 (0.0-0.9); Mono % (Auto) 12.8 % (0.0-8.0); Neut # (Auto) 6.6 th/mm3 (1.8-7.7); Neut % (Auto) 73.5 % (16.0-70.0); Platelet Count 171 th/mm3 (150-450)
[2018-06-08] MEDS: Insulin NovoLOG Aspart Correctional Sugar Inj SQ SCH ×6 (06:22→21:39)
[2018-06-08 06:35] LABS: Calcium 7.6 mg/dL (8.5-10.1); Carbon Dioxide 28.8 meq/L (21.0-32.0); Magnesium 1.9 mg/dL (1.5-2.5); Potassium 4.1 meq/L (3.5-5.1)
[2018-06-08] MEDS: Multivitamin/Minerals Therapeutic Tablet PO SCH (09:08)
[2018-06-08] MEDS: Docusate Sodium 100 MG Capsule PO SCH ×2 (09:08→21:37)
[2018-06-08] MEDS: Amiodarone 200 MG Tablet PO SCH ×2 (09:08→21:37)
[2018-06-08] MEDS: Mag Sulf 1 gm/100 ml Premix 100 ML IV.SIG SCH ×2 (09:12→11:38)
[2018-06-08] MEDS: Polyethylene Glycol 3350 17 GM Packet PO SCH (09:12)
[2018-06-08] MEDS: Mupirocin 2% Nasal Oint Topical Syringe EACH NARE SCH (09:12)
--- NOTE | 2018-06-08 10:09 | P.PNCV ---
- Note Subjective/Hospital Course: Pleasant 72-year-old gentleman with no prior identifiable cardiac history who presents with new onset chest pain. Patient called EMS and was being transferred to the hospital when he suffered a ventricular fibrillation arrest necessitating defibrillation and manual CPR. Following presentation he was noted to have an STEMI and underwent emergent cardiac catheterization by Dr. Tim. Coronary angiography revealed moderate left main stenosis with associated critical LAD and circumflex disease, with minimal nonobstructive right coronary artery lesions. This is in the setting of severe left ventricular dysfunction with estimated EF 25%. Intra-aortic balloon pump was placed, patient was begun on inotropic therapy and transferred to CVICU for further management. 06/05 Clinically and hemodynamically stable with IABP and Dobutamine support Exam - unchanged OR in am 06/06 : PREPROCEDURE DIAGNOSES 1. Severe Multi Vessel Coronary Artery Disease. 2. Acute myocardial infarction 3. Ventricular fibrillation arrest 4. Cardiogenic shock with IABP placement 5. Severe left ventricular dysfunction (EF 25%) 6. Inotropic support 7. Pulmonary insufficiency 8. Sternal fracture surgery: 1. Urgent Off-pump Coronary Artery Bypass Grafting x 2 with Left Internal Mammary Artery (HERNANDEZ) to Left Anterior Descending (LAD), reverse saphenous vein graft to Obtuse Marginal branch of the Left Circumflex artery 2. Left leg Endoscopic Vein [place] 3. Stabilization of sternal fracture 06/07 on nasal cannula IABP : 1:3 3am -5am tolerated well placed back on 1:3 for one hour this am / dobutamine decreased to 2.5mcq on nasal cannula, pain controlled , chest tube in place no air leak left fem rachel removed this am Right Fem IABP removed / see procedure note plan is to wean off dobutamine this afternoon, if BP tolerates 06/08 off all IV Inotrope on nasal cannula start low dose BB, then eval for SHIRLYE and spironolactone gentle diuresis pain control transfer to stepdown limited echo pending in am Objective: Vital Signs - 24 hr 06/07/18 10:39 06/07/18 11:00 06/07/18 15:00 Temperature 98.3 F 98.4 F Pulse Rate 95 H 96 H Respiratory Rate 18 18 20 Blood Pressure 131/74 Pulse Oximetry 94 L 93 L 06/07/18 16:20 06/07/18 16:25 06/07/18 19:00 Temperature 98.9 F Pulse Rate 105 H 94 H Respiratory Rate 18 19 20 Blood Pressure 127/77 Pulse Oximetry 94 L 06/07/18 19:47 06/07/18 20:00 06/07/18 23:00 Temperature 99.1 F Pulse Rate 89 96 H Respiratory Rate 20 18 Blood Pressure 123/71 Pulse Oximetry 92 L 94 L 92 L 06/08/18 00:00 06/08/18 03:00 06/08/18 04:00 Temperature 98.9 F Pulse Rate 83 Respiratory Rate 18 18 18 Blood Pressure 115/63 Pulse Oximetry 94 L 06/08/18 09:07 06/08/18 09:11 Temperature Pulse Rate 96 H Respiratory Rate 18 Blood Pressure Pulse Oximetry 95 GENERAL: A&O x 3 SKIN: Warm and dry. prevena dressing to chest , incision intact right leg . no hematoma to groin sites HEAD: Normocephalic. EYES: No scleral icterus. No injection or drainage. NECK: Supple, trachea midline. No JVD or lymphadenopathy. CARDIOVASCULAR: Regular rate and rhythm without murmurs, gallops, or rubs. RESPIRATORY: Breath sounds equal bilaterally. No accessory muscle use. diminished in bases / chest tube to wall suction/ drained 230cc/ 12 hrs will leave in GASTROINTESTINAL: Abdomen soft, non-tender, nondistended. MUSCULOSKELETAL: No cyanosis, or edema. BACK: Nontender without obvious deformity. No CVA tenderness. Labs: Laboratory Results - last 12 hr 06/08/18 06/08/18 06/08/18 02:27 04:50 04:50 WBC 9.0 RBC 2.70 L Hgb 9.0 L Hct 26.3 L MCV 97.7 MCH 33.4 MCHC 34.2 RDW 14.0 Plt Count 171 MPV 8.6 Neut % (Auto) 73.5 H Lymph % (Auto) 12.2 [place] % (Auto) 12.8 H Eos % (Auto) 1.2 Baso % (Auto) 0.3 Neut # (Auto) 6.6 Lymph # (Auto) 1.1 [place] # (Auto) 1.2 H Eos # (Auto) 0.1 Baso # (Auto) 0.0 WBC Differential . Differential Comment Auto diff final Sodium 135 L Potassium 4.1 Chloride 98 Carbon Dioxide 28.8 Anion Gap 8 BUN 17 Creatinine 0.90 Estimated GFR 83 L POC Glucose 104 Random Glucose 107 H Calcium 7.6 L Magnesium 1.9 06/08/18 06/08/18 05:52 09:19 WBC RBC Hgb Hct MCV MCH MCHC RDW Plt Count MPV Neut % (Auto) Lymph % (Auto) [place] % (Auto) Eos % (Auto) Baso % (Auto) Neut # (Auto) Lymph # (Auto) [place] # (Auto) Eos # (Auto) Baso # (Auto) WBC Differential Differential Comment Sodium Potassium Chloride Carbon Dioxide Anion Gap BUN Creatinine Estimated GFR POC Glucose 116 H 158 H Random Glucose Calcium Magnesium Result Diagrams: 06/08/18 04:50 06/08/18 04:50 - Plan (1) ST elevation myocardial infarction (STEMI) (3) Hyperlipidemia Plan: on statin heart healthy diet (4) Severe left ventricular systolic dysfunction Plan: EF 25 % s/p Vfib arrest on amiodarone will need SHIRLEY when BP tolerates eval for spironolactone and coreg also will discuss with Dr Tim (5) S/P CABG x 2 Plan: ASA, statin , start BB OOB, ambulate nebs ezpap gentle diuresis leave chest tubes in (1) ST elevation myocardial infarction (STEMI) Qualifiers: Involved coronary artery: LAD coronary artery Qualified Code(s): I21.02 - ST elevation (STEMI) myocardial infarction involving left anterior descending coronary artery (3) Hyperlipidemia Qualifiers: Hyperlipidemia type: pure hypercholesterolemia Qualified Code(s): E78.00 - Pure hypercholesterolemia, unspecified; E78.0 - Pure hypercholesterolemia
[2018-06-08 10:38] LABS: Calcium 7.8 mg/dL (8.5-10.1); Total Protein 5.2 g/dL (6.4-8.2)
[2018-06-08] MEDS: DOBUTAMINE IV.CONT SCH (18:22)
[2018-06-08] MEDS: SODIUM CHLOR 0.9% IV.CONT SCH (18:22)
[2018-06-09] MEDS: Insulin NovoLOG Aspart Correctional Sugar Inj SQ SCH ×6 (02:45→20:34)
[2018-06-09 04:45] LABS: Hematocrit 24.4 % (39.0-51.0); Hemoglobin 8.2 gm/dL (13.0-17.0); Mean Corpuscular HGB Conc 33.4 % (32.0-36.0); Mean Corpuscular Hemoglobin 32.9 pg (27.0-34.0); Mean Corpuscular Volume 98.7 fL (80.0-100.0); Mean Platelet Volume 7.9 fL (7.0-11.0); Platelet Count 188 th/mm3 (150-450); Red Blood Count 2.48 mil/mm3 (4.50-5.90); Red Cell Distribution Width 14.4 % (11.6-17.2); White Blood Count 7.9 th/mm3 (4.0-11.0)
[2018-06-09 05:10] LABS: Calcium 7.8 mg/dL (8.5-10.1); Carbon Dioxide 30.9 meq/L (21.0-32.0); Magnesium 2.4 mg/dL (1.5-2.5); Potassium 4.1 meq/L (3.5-5.1)
[2018-06-09] MEDS: Polyethylene Glycol 3350 17 GM Packet PO SCH (09:13)
[2018-06-09] MEDS: Docusate Sodium 100 MG Capsule PO SCH ×2 (09:13→20:33)
[2018-06-09] MEDS: Amiodarone 200 MG Tablet PO SCH ×2 (09:14→20:33)
[2018-06-09] MEDS: Multivitamin/Minerals Therapeutic Tablet PO SCH (09:15)
[2018-06-09] MEDS: Spironolactone 25 MG Tablet PO SCH (09:40)
--- NOTE | 2018-06-09 11:03 | P.PNCV ---
- Note Subjective/Hospital Course: Pleasant 72-year-old gentleman with no prior identifiable cardiac history who presents with new onset chest pain. Patient called EMS and was being transferred to the hospital when he suffered a ventricular fibrillation arrest necessitating defibrillation and manual CPR. Following presentation he was noted to have an STEMI and underwent emergent cardiac catheterization by Dr. Tim. Coronary angiography revealed moderate left main stenosis with associated critical LAD and circumflex disease, with minimal nonobstructive right coronary artery lesions. This is in the setting of severe left ventricular dysfunction with estimated EF 25%. Intra-aortic balloon pump was placed, patient was begun on inotropic therapy and transferred to CVICU for further management. 06/05 Clinically and hemodynamically stable with IABP and Dobutamine support Exam - unchanged OR in am 06/06 : PREPROCEDURE DIAGNOSES 1. Severe Multi Vessel Coronary Artery Disease. 2. Acute myocardial infarction 3. Ventricular fibrillation arrest 4. Cardiogenic shock with IABP placement 5. Severe left ventricular dysfunction (EF 25%) 6. Inotropic support 7. Pulmonary insufficiency 8. Sternal fracture surgery: 1. Urgent Off-pump Coronary Artery Bypass Grafting x 2 with Left Internal Mammary Artery (HERNANDEZ) to Left Anterior Descending (LAD), reverse saphenous vein graft to Obtuse Marginal branch of the Left Circumflex artery 2. Left leg Endoscopic Vein [place] 3. Stabilization of sternal fracture 06/07 on nasal cannula IABP : 1:3 3am -5am tolerated well placed back on 1:3 for one hour this am / dobutamine decreased to 2.5mcq on nasal cannula, pain controlled , chest tube in place no air leak left fem rachel removed this am Right Fem IABP removed / see procedure note plan is to wean off dobutamine this afternoon, if BP tolerates 06/08 off all IV Inotrope on nasal cannula start low dose BB, then eval for SHIRLEY and spironolactone gentle diuresis pain control transfer to stepdown limited echo pending in am 06/09 pt on 2 liter nasal cannula consider low dose diuresis limited echo completed chest tube drained 60cc overnight and additional 110cc this am will eval later for possible removal start low dose SHIRLEY in am , start spironolactone today transfer to stepdown Objective: Vital Signs - 24 hr 06/08/18 11:00 06/08/18 11:37 06/08/18 13:58 Temperature 98.3 F 98.3 F Pulse Rate 86 86 Respiratory Rate 19 18 19 Blood Pressure 120/75 120/75 Pulse Oximetry 96 96 06/08/18 15:50 06/08/18 19:30 06/08/18 20:00 Temperature 99.2 F Pulse Rate 90 86 Respiratory Rate 20 18 Blood Pressure 120/67 Pulse Oximetry 94 L 94 L 06/08/18 20:35 06/08/18 20:45 06/08/18 23:00 Temperature Pulse Rate 85 80 81 Respiratory Rate 16 Blood Pressure Pulse Oximetry 94 L 06/08/18 23:46 06/09/18 00:05 06/09/18 03:12 Temperature 100.2 F H Pulse Rate 78 68 Respiratory Rate 20 20 Blood Pressure 109/63 Pulse Oximetry 95 06/09/18 03:13 06/09/18 07:00 06/09/18 08:00 Temperature 98.2 F 98.2 F Pulse Rate 70 84 Respiratory Rate 18 16 Blood Pressure 101/63 113/66 Pulse Oximetry 92 L 93 L 94 L GENERAL: A&O x 3 SKIN: Warm and dry. prevena dressing in place to chest , incision intact left leg both groin puncture sites intact without hematoma HEAD: Normocephalic. EYES: No scleral icterus. No injection or drainage. NECK: Supple, trachea midline. No JVD or lymphadenopathy. CARDIOVASCULAR: Regular rate and rhythm without murmurs, gallops, or rubs. + distal pulses RESPIRATORY: Breath sounds equal bilaterally. No accessory muscle use. diminished in the bases , few basiliar crackles chest tube in place no air leak GASTROINTESTINAL: Abdomen soft, non-tender, nondistended. MUSCULOSKELETAL: No cyanosis, or edema. BACK: Nontender without obvious deformity. No CVA tenderness. Labs: Laboratory Results - last 12 hr 06/09/18 06/09/18 06/09/18 02:38 04:29 04:29 WBC 7.9 RBC 2.48 L Hgb 8.2 L Hct 24.4 L MCV 98.7 MCH 32.9 MCHC 33.4 RDW 14.4 Plt Count 188 MPV 7.9 Sodium 138 Potassium 4.1 Chloride 100 Carbon Dioxide 30.9 Anion Gap 7 BUN 23 H Creatinine 0.89 Estimated GFR 84 L POC Glucose 106 Random Glucose 96 Calcium 7.8 L Magnesium 2.4 06/09/18 09:35 WBC RBC Hgb Hct MCV MCH MCHC RDW Plt Count MPV Sodium Potassium Chloride Carbon Dioxide Anion Gap BUN Creatinine Estimated GFR POC Glucose 109 Random Glucose Calcium Magnesium Result Diagrams: 06/09/18 04:29 06/09/18 04:29 Telemetry: NSR - Plan (1) ST elevation myocardial infarction (STEMI) (2) Ventricular tachyarrhythmia Plan: on amiodarone, no further arrhythmia (3) Hyperlipidemia Plan: on statin heart healthy diet (4) Severe left ventricular systolic dysfunction Plan: EF 25 % / repeat limited Echo results pending s/p Vfib arrest on amiodarone start SHIRLEY in am , start spironolactone on ASA coreg (5) S/P CABG x 2 Plan: ASA, statin , start BB OOB, ambulate nebs ezpap gentle diuresis leave chest tubes in / eval for removal later today (1) ST elevation myocardial infarction (STEMI) Qualifiers: Involved coronary artery: LAD coronary artery Qualified Code(s): I21.02 - ST elevation (STEMI) myocardial infarction involving left anterior descending coronary artery (3) Hyperlipidemia Qualifiers: Hyperlipidemia type: pure hypercholesterolemia Qualified Code(s): E78.00 - Pure hypercholesterolemia, unspecified; E78.0 - Pure hypercholesterolemia
[2018-06-09] MEDS: Ferrous Sulfate 325 MG Tablet PO SCH ×2 (12:07→17:24)
--- NOTE | 2018-06-09 12:53 | ECHRPT ---
Indication: Cardiomyopathy CONCLUSIONS Upper normal left ventricular size. Wall thickness is normal. Wall thickness is normal. Possible small area of distal septal and apical hypokinesis. The left ventricular systolic function is low normal with an estimated ejection fraction of 50%. Trace mitral valve regurgitation. Mild mitral annular calcification is present. There is a trivial pericardial effusion present. BP: / HR: Rhythm: Sinus MEASUREMENTS (Male / Female) Normal Values Technical Quality:Fair 2D ECHO LV Diastolic Diameter PLAX 5.8 cm 4.2 - 5.9 / 3.9 - 5.3 cm LV Systolic Diameter PLAX 4.7 cm IVS Diastolic Thickness 0.9 cm 0.6 - 1.0 / 0.6 - 0.9 cm LVPW Diastolic Thickness 1.0 cm 0.6 - 1.0 / 0.6 - 0.9 cm LV Relative Wall Thickness 0.3 RV Internal Dim ED PLAX 1.9 cm LVOT Diameter 1.8 cm LA Systolic Diameter LX 4.3 cm 3.0 - 4.0 / 2.7 - 3.8 cm LV Ejection Fraction MOD 4C 43.8 % LV Ejection Fraction 4C AL 44.7 % DOPPLER Mitral E Point Velocity 76.5 cm/s Mitral A Point Velocity 80.0 cm/s Mitral E to A Ratio 1.0 TV Peak Velocity 149.0 cm/s TR Peak Velocity 141.0 cm/s TR Peak Gradient 8.0 mmHg Right Atrial Pressure 10.0 mmHg Pulmonary Artery Systolic Pressu 18.0 mmHg Right Ventricular Systolic Press 18.0 mmHg FINDINGS LEFT VENTRICLE Upper normal left ventricular size. Wall thickness is normal. Wall thickness is normal. Possible small area of distal septal and apical hypokinesis. The left ventricular systolic function is low normal with an estimated ejection fraction of 50%. RIGHT VENTRICLE Normal right ventricular size and systolic function. LEFT ATRIUM The left atrial size is normal. RIGHT ATRIUM The right atrial size is normal. ATRIAL SEPTUM Normal atrial septal thickness without atrial level shunting by limited color doppler interrogation. AORTA The aortic root and proximal ascending aorta are normal in size on limited imaging. MITRAL VALVE Trace mitral valve regurgitation. Mild mitral annular calcification is present. AORTIC VALVE Trileaflet aortic valve. No aortic valve stenosis or regurgitation. TRICUSPID VALVE Structurally normal tricuspid valve. No tricuspid valve stenosis or regurgitation. PULMONARY VALVE No pulmonary valve regurgitation or stenosis. VESSELS The inferior vena cava is normal in size. PERICARDIUM There is a trivial pericardial effusion present. Brayden Tim MD (Electronically Signed) Final Date:09 June 2018 12:51
--- NOTE | 2018-06-09 17:39 | P.PN ---
Subjective Interval history: Follow-up for CABG. Patient is currently resting well. Chest tubes were discontinued today. No acute concerns. No chest pain, shortness of breath, fever or chills. Physical Exam Vital signs: Vital Signs 06/08/18 19:30 06/08/18 20:00 06/08/18 20:35 Temperature 99.2 F Pulse Rate 86 85 Respiratory Rate 18 16 Blood Pressure 120/67 Pulse Oximetry 94 L 94 L 94 L 06/08/18 20:45 06/08/18 23:00 06/08/18 23:46 Temperature 100.2 F H Pulse Rate 80 81 78 Respiratory Rate 20 Blood Pressure 109/63 Pulse Oximetry 95 06/09/18 00:05 06/09/18 03:12 06/09/18 03:13 Temperature 98.2 F Pulse Rate 68 70 Respiratory Rate 20 18 Blood Pressure 101/63 Pulse Oximetry 92 L 06/09/18 07:00 06/09/18 08:00 06/09/18 10:49 Temperature 98.2 F Pulse Rate 84 88 Respiratory Rate 16 18 Blood Pressure 113/66 Pulse Oximetry 93 L 94 L 95 06/09/18 10:57 06/09/18 11:00 06/09/18 15:00 Temperature 98.6 F 98.5 F Pulse Rate 81 85 Respiratory Rate 15 16 18 Blood Pressure 108/69 112/68 Pulse Oximetry 94 L 96 06/09/18 16:00 06/09/18 17:00 Temperature Pulse Rate 82 82 Respiratory Rate Blood Pressure Pulse Oximetry Intake & Output 06/08/18 06/09/18 06/09/18 18:59 06:59 18:59 Intake Total 1250 / 1250 580 / 580 480 / 480 Output Total 1645 / 1645 675 / 675 640 / 640 Balance -395 / -395 -95 / -95 -160 / -160 Weight 77 kg Intake: IV 100 / 100 100 / 100 0 / 0 Magnesium Sulfate 1 gm/D5W 100 100 / 100 100 / 100 ml Premix 100 ML @ 100 mls/hr IV.SIG Q1H SUZIE Rx#:[id number] Oral 1150 / 1150 480 / 480 480 / 480 Output: Urine 1645 / 1645 675 / 675 500 / 500 Chest Tube Drainage 140 / 140 Pleural/Mediastinal 140 / 140 Other: # Voids 2 Date of Last Bowel Movement 06/03/18 Narrative: GENERAL: Alert, oriented 3, NAD. SKIN: Warm and dry. Prevent dressing is in place to chest. HEAD: Normocephalic. EYES: No scleral icterus. No injection or drainage. NECK: Supple, trachea midline. No JVD or lymphadenopathy. CARDIOVASCULAR: Regular rate and rhythm without murmurs, gallops, or rubs. RESPIRATORY: Breath sounds equal bilaterally. No accessory muscle use. GASTROINTESTINAL: Abdomen soft, non-tender, nondistended. MUSCULOSKELETAL: No cyanosis, or edema. BACK: Nontender without obvious deformity. No CVA tenderness. - Urinary Catheter Management Indwelling Temp Sensing Catheter Cath placed during this visit: yes, but has since been removed by the nurse Reason for continuing: Hourly intake/output Insertion date: 06/06/18 Insertion time: 08:00 Removal date: 06/07/18 Removal time: 16:17 Results - Labs CBC & Chem 7: 06/09/18 04:29 06/09/18 04:29 Laboratory Results - last 24 hr 06/08/18 06/08/18 06/09/18 17:21 21:36 02:38 WBC RBC Hgb Hct MCV MCH MCHC RDW Plt Count MPV Sodium Potassium Chloride Carbon Dioxide Anion Gap BUN Creatinine Estimated GFR POC Glucose 111 H 114 H 106 Random Glucose Calcium Magnesium 06/09/18 06/09/18 06/09/18 04:29 04:29 09:35 WBC 7.9 RBC 2.48 L Hgb 8.2 L Hct 24.4 L MCV 98.7 MCH 32.9 MCHC 33.4 RDW 14.4 Plt Count 188 MPV 7.9 Sodium 138 Potassium 4.1 Chloride 100 Carbon Dioxide 30.9 Anion Gap 7 BUN 23 H Creatinine 0.89 Estimated GFR 84 L POC Glucose 109 Random Glucose 96 Calcium 7.8 L Magnesium 2.4 06/09/18 06/09/18 11:29 16:42 WBC RBC Hgb Hct MCV MCH MCHC RDW Plt Count MPV Sodium Potassium Chloride Carbon Dioxide Anion Gap BUN Creatinine Estimated GFR POC Glucose 105 100 Random Glucose Calcium Magnesium Assessment and Plan - Plan Mr. Vaca is a pleasant 72-year-old male with no significant cardiac history who was transferred to the hospital after he sustained a ventricular fibrillation cardiac arrest status post defibrillation and CPR. Patient was noted to have STEMI and underwent emergent cardiac catheterization by Dr. Tim. Coronary angiogram revealed moderate left main stenosis with associated critical LAD and circumflex disease. His LV EF was 25%. Patient underwent intra-aortic balloon pump placement and subsequently cardiothoracic surgery performed CABG 2. ST elevation myocardial infarction Ventricular fibrillation -Status post defibrillation and CPR. Status post cardiac catheterization and CABG 2 (HERNANDEZ-->LAD, SVG-->OM) -Continue amiodarone 400 mg every 12 hours. -Continue aspirin 81 mg, atorvastatin 40 mg, Plavix 75 mg. -Continue lisinopril 2.5 mg daily, carvedilol 3.125 mg p.o. twice daily. -Continue Spironolactone 25 mg p.o. daily. -Echo shows improved EF from 25% to 50% after revascularization. Full code. Pharmacological DVT prophylaxis can be considered if okay with CV surgery.
[2018-06-10 04:33] LABS: Hematocrit 25.8 % (39.0-51.0); Hemoglobin 8.7 gm/dL (13.0-17.0); Mean Corpuscular HGB Conc 33.6 % (32.0-36.0); Mean Corpuscular Volume 98.3 fL (80.0-100.0); Mean Platelet Volume 7.8 fL (7.0-11.0); Platelet Count 258 th/mm3 (150-450); Red Blood Count 2.63 mil/mm3 (4.50-5.90); Red Cell Distribution Width 14.3 % (11.6-17.2); White Blood Count 9.1 th/mm3 (4.0-11.0)
[2018-06-10 04:57] LABS: Carbon Dioxide 27.9 meq/L (21.0-32.0); Magnesium 2.3 mg/dL (1.5-2.5); Potassium 4.1 meq/L (3.5-5.1)
--- NOTE | 2018-06-10 05:40 | XR ---
EXAM DATE: 06/10/2018 5:00 AM EDT AGE/SEX: 72 years / Male INDICATIONS: Shortness of breath, possible pneumothorax. CLINICAL DATA: This is the patient's subsequent encounter. Patient reports that signs and symptoms h ave been present for 4 - 6 days and indicates a pain score of 7/10. MEDICAL/SURGICAL HISTORY: Myocardial infarction. CAD. CABG. COMPARISON: [facility], CHEST 1V SINGLE AP, 06/07/2018. . FINDINGS: Heart size enlarged. Mild basilar airspace disease, left greater than right. No pneumothorax. Previou s chest tubes and right central line have been removed. CONCLUSION: Removal of previous chest tubes and right central line without pneumothorax. Stable mild basilar airs pace disease. Electronically signed by: Koko Diaz MD 06/10/2018 5:38 AM EDT
[2018-06-10] MEDS: Multivitamin/Minerals Therapeutic Tablet PO SCH (08:04)
[2018-06-10] MEDS: Insulin NovoLOG Aspart Correctional Sugar Inj SQ SCH ×4 (08:04→20:45)
[2018-06-10] MEDS: Polyethylene Glycol 3350 17 GM Packet PO SCH (08:04)
[2018-06-10] MEDS: Spironolactone 25 MG Tablet PO SCH (08:05)
[2018-06-10] MEDS: Docusate Sodium 100 MG Capsule PO SCH ×2 (08:05→20:44)
[2018-06-10] MEDS: Amiodarone 200 MG Tablet PO SCH ×2 (08:05→20:44)
[2018-06-10] MEDS: Lisinopril 5 MG Tablet PO SCH (08:05)
--- NOTE | 2018-06-10 11:14 | P.PN ---
Subjective Interval history: Follow-up for CABG. patient is currently doing well. Sitting in his chair. No acute concerns. No chest pain, shortness of breath, fever or chills. He has not had a bowel movement yet. Physical Exam Vital signs: Vital Signs 06/09/18 15:00 06/09/18 16:00 06/09/18 17:00 Temperature 98.5 F Pulse Rate 85 82 82 Respiratory Rate 18 Blood Pressure 112/68 Pulse Oximetry 96 06/09/18 18:00 06/09/18 19:00 06/09/18 19:08 Temperature 99.7 F H Pulse Rate 84 81 Respiratory Rate 18 Blood Pressure 107/59 L Pulse Oximetry 96 96 06/09/18 20:00 06/09/18 21:00 06/09/18 22:00 Temperature Pulse Rate 82 84 88 Respiratory Rate Blood Pressure Pulse Oximetry 96 06/09/18 23:00 06/10/18 00:00 06/10/18 01:00 Temperature 99.7 F H Pulse Rate 69 70 72 Respiratory Rate 16 Blood Pressure 108/61 Pulse Oximetry 97 06/10/18 02:00 06/10/18 03:00 06/10/18 04:00 Temperature 99.0 F Pulse Rate 74 74 72 Respiratory Rate 18 Blood Pressure 111/59 L Pulse Oximetry 97 06/10/18 05:00 06/10/18 06:00 06/10/18 07:00 Temperature 99.7 F H Pulse Rate 74 75 79 Respiratory Rate 16 Blood Pressure 104/62 Pulse Oximetry 100 06/10/18 08:00 06/10/18 09:00 06/10/18 10:00 Temperature Pulse Rate 83 84 78 Respiratory Rate Blood Pressure Pulse Oximetry 100 Intake & Output 06/09/18 06/10/18 06/10/18 18:59 06:59 18:59 Intake Total 1180 / 1180 720 / 720 Output Total 1220 / 1220 800 / 800 Balance -40 / -40 -80 / -80 Weight 74.3 kg Intake: IV 0 / 0 Oral 1180 / 1180 720 / 720 Output: Urine 1080 / 1080 800 / 800 Chest Tube Drainage 140 / 140 Pleural/Mediastinal 140 / 140 Other: # Voids 2 # Bowel Movements 0 Narrative: GENERAL: Alert, oriented 3, NAD. SKIN: Warm and dry. Prevent dressing is in place to chest. HEAD: Normocephalic. EYES: No scleral icterus. No injection or drainage. NECK: Supple, trachea midline. No JVD or lymphadenopathy. CARDIOVASCULAR: Regular rate and rhythm without murmurs, gallops, or rubs. RESPIRATORY: Breath sounds equal bilaterally. No accessory muscle use. GASTROINTESTINAL: Abdomen soft, non-tender, nondistended. MUSCULOSKELETAL: No cyanosis, or edema. BACK: Nontender without obvious deformity. No CVA tenderness. - Urinary Catheter Management Indwelling Temp Sensing Catheter Cath placed during this visit: yes, but has since been removed by the nurse Reason for continuing: Hourly intake/output Insertion date: 06/06/18 Insertion time: 08:00 Removal date: 06/07/18 Removal time: 16:17 Results - Labs CBC & Chem 7: 06/10/18 04:16 06/10/18 04:16 Laboratory Results - last 24 hr 06/09/18 06/09/18 06/09/18 11:29 16:42 19:48 WBC RBC Hgb Hct MCV MCH MCHC RDW Plt Count MPV Sodium Potassium Chloride Carbon Dioxide Anion Gap BUN Creatinine Estimated GFR POC Glucose 105 100 118 H Random Glucose Calcium Magnesium 06/10/18 06/10/18 06/10/18 04:16 04:16 07:27 WBC 9.1 RBC 2.63 L Hgb 8.7 L Hct 25.8 L MCV 98.3 MCH 33.0 MCHC 33.6 RDW 14.3 Plt Count 258 D MPV 7.8 Sodium 137 Potassium 4.1 Chloride 99 Carbon Dioxide 27.9 Anion Gap 10 BUN 21 H Creatinine 0.98 Estimated GFR 75 L POC Glucose 94 Random Glucose 98 Calcium 8.0 L Magnesium 2.3 06/10/18 11:02 WBC RBC Hgb Hct MCV MCH MCHC RDW Plt Count MPV Sodium Potassium Chloride Carbon Dioxide Anion Gap BUN Creatinine Estimated GFR POC Glucose 147 H Random Glucose Calcium Magnesium - Imaging Impressions Chest X-Ray 06/10/18 06:00 CONCLUSION: Removal of previous chest tubes and right central line without pneumothorax. Stable mild basilar airspace disease. Assessment and Plan - Plan Mr. Vaca is a pleasant 72-year-old male with no significant cardiac history who was transferred to the hospital after he sustained a ventricular fibrillation cardiac arrest status post defibrillation and CPR. Patient was noted to have STEMI and underwent emergent cardiac catheterization by Dr. Tim. Coronary angiogram revealed moderate left main stenosis with associated critical LAD and circumflex disease. His LV EF was 25%. Patient underwent intra-aortic balloon pump placement and subsequently cardiothoracic surgery performed CABG 2. ST elevation myocardial infarction Ventricular fibrillation -Status post defibrillation and CPR. Status post cardiac catheterization and CABG 2 (HERNANDEZ-->LAD, SVG-->OM) -Continue amiodarone 400 mg every 12 hours. -Continue aspirin 81 mg, atorvastatin 40 mg, Plavix 75 mg. -Continue lisinopril 2.5 mg daily, carvedilol 3.125 mg p.o. twice daily. -Echo shows improved EF from 25% to 50% after revascularization. Constipation - multiple laxatives available PRN. Full code. Pharmacological DVT prophylaxis can be considered if okay with CV surgery. Probable discharge home tomorrow 06/11/2018.
[2018-06-10] MEDS: Ferrous Sulfate 325 MG Tablet PO SCH ×2 (11:50→16:09)
--- NOTE | 2018-06-10 13:33 | P.PNCV ---
- Note Subjective/Hospital Course: Pleasant 72-year-old gentleman with no prior identifiable cardiac history who presents with new onset chest pain. Patient called EMS and was being transferred to the hospital when he suffered a ventricular fibrillation arrest necessitating defibrillation and manual CPR. Following presentation he was noted to have an STEMI and underwent emergent cardiac catheterization by Dr. Tim. Coronary angiography revealed moderate left main stenosis with associated critical LAD and circumflex disease, with minimal nonobstructive right coronary artery lesions. This is in the setting of severe left ventricular dysfunction with estimated EF 25%. Intra-aortic balloon pump was placed, patient was begun on inotropic therapy and transferred to CVICU for further management. 06/05 Clinically and hemodynamically stable with IABP and Dobutamine support Exam - unchanged OR in am 06/06 : PREPROCEDURE DIAGNOSES 1. Severe Multi Vessel Coronary Artery Disease. 2. Acute myocardial infarction 3. Ventricular fibrillation arrest 4. Cardiogenic shock with IABP placement 5. Severe left ventricular dysfunction (EF 25%) 6. Inotropic support 7. Pulmonary insufficiency 8. Sternal fracture surgery: 1. Urgent Off-pump Coronary Artery Bypass Grafting x 2 with Left Internal Mammary Artery (HERNANDEZ) to Left Anterior Descending (LAD), reverse saphenous vein graft to Obtuse Marginal branch of the Left Circumflex artery 2. Left leg Endoscopic Vein [place] 3. Stabilization of sternal fracture 06/07 on nasal cannula IABP : 1:3 3am -5am tolerated well placed back on 1:3 for one hour this am / dobutamine decreased to 2.5mcq on nasal cannula, pain controlled , chest tube in place no air leak left fem rachel removed this am Right Fem IABP removed / see procedure note plan is to wean off dobutamine this afternoon, if BP tolerates 06/08 off all IV Inotrope on nasal cannula start low dose BB, then eval for SHIRLEY and spironolactone gentle diuresis pain control transfer to stepdown limited echo pending in am 06/09 pt on 2 liter nasal cannula consider low dose diuresis limited echo completed chest tube drained 60cc overnight and additional 110cc this am will eval later for possible removal start low dose SHIRLEY in am , start spironolactone today transfer to stepdown 06/10 repeat EF 50% will stop spironolactone, continue BB low grade temp last night, continue pulm toileting CXR stable / WBC stable Objective: Vital Signs - 24 hr 06/09/18 15:00 06/09/18 16:00 06/09/18 17:00 Temperature 98.5 F Pulse Rate 85 82 82 Respiratory Rate 18 Blood Pressure 112/68 Pulse Oximetry 96 06/09/18 18:00 06/09/18 19:00 06/09/18 19:08 Temperature 99.7 F H Pulse Rate 84 81 Respiratory Rate 18 Blood Pressure 107/59 L Pulse Oximetry 96 96 06/09/18 20:00 06/09/18 21:00 06/09/18 22:00 Temperature Pulse Rate 82 84 88 Respiratory Rate Blood Pressure Pulse Oximetry 96 06/09/18 23:00 06/10/18 00:00 06/10/18 01:00 Temperature 99.7 F H Pulse Rate 69 70 72 Respiratory Rate 16 Blood Pressure 108/61 Pulse Oximetry 97 06/10/18 02:00 06/10/18 03:00 06/10/18 04:00 Temperature 99.0 F Pulse Rate 74 74 72 Respiratory Rate 18 Blood Pressure 111/59 L Pulse Oximetry 97 06/10/18 05:00 06/10/18 06:00 06/10/18 07:00 Temperature 99.7 F H Pulse Rate 74 75 79 Respiratory Rate 16 Blood Pressure 104/62 Pulse Oximetry 100 06/10/18 08:00 06/10/18 09:00 06/10/18 10:00 Temperature Pulse Rate 83 84 78 Respiratory Rate Blood Pressure Pulse Oximetry 100 06/10/18 11:00 06/10/18 12:00 06/10/18 13:00 Temperature 99.1 F Pulse Rate 76 78 83 Respiratory Rate 16 Blood Pressure 116/60 Pulse Oximetry 100 GENERAL: A&O x3 SKIN: Warm and dry. prevena dressing to chest HEAD: Normocephalic. EYES: No scleral icterus. No injection or drainage. NECK: Supple, trachea midline. No JVD or lymphadenopathy. CARDIOVASCULAR: Regular rate and rhythm without murmurs, gallops, or rubs. RESPIRATORY: Breath sounds equal bilaterally. No accessory muscle use. more diminished left lower lobe GASTROINTESTINAL: Abdomen soft, non-tender, nondistended. MUSCULOSKELETAL: No cyanosis, or edema. BACK: Nontender without obvious deformity. No CVA tenderness. Labs: Laboratory Results - last 12 hr 09/06/10/18 06/10/18 04:16 04:16 07:27 WBC 9.1 RBC 2.63 L Hgb 8.7 L Hct 25.8 L MCV 98.3 MCH 33.0 MCHC 33.6 RDW 14.3 Plt Count 258 D MPV 7.8 Sodium 137 Potassium 4.1 Chloride 99 Carbon Dioxide 27.9 Anion Gap 10 BUN 21 H Creatinine 0.98 Estimated GFR 75 L POC Glucose 94 Random Glucose 98 Calcium 8.0 L Magnesium 2.3 06/10/18 11:02 WBC RBC Hgb Hct MCV MCH MCHC RDW Plt Count MPV Sodium Potassium Chloride Carbon Dioxide Anion Gap BUN Creatinine Estimated GFR POC Glucose 147 H Random Glucose Calcium Magnesium Result Diagrams: 06/10/18 04:16 06/10/18 04:16 Telemetry: NSR - Plan (1) ST elevation myocardial infarction (STEMI) (2) Ventricular tachyarrhythmia Plan: on amiodarone, no further arrhythmia (3) Hyperlipidemia Plan: on statin heart healthy diet (4) Severe left ventricular systolic dysfunction Plan: EF 25 % / repeat limited Echo results pending s/p Vfib arrest on amiodarone start SHIRLEY in am , start spironolactone on ASA coreg (5) S/P CABG x 2 Plan: ASA, statin , start BB OOB, ambulate nebs ezpap chest tube removed, CXR stable continue pulm toileting (6) Fever, low grade Plan: IS, acapella , continue nebs (1) ST elevation myocardial infarction (STEMI) Qualifiers: Involved coronary artery: LAD coronary artery Qualified Code(s): I21.02 - ST elevation (STEMI) myocardial infarction involving left anterior descending coronary artery (3) Hyperlipidemia Qualifiers: Hyperlipidemia type: pure hypercholesterolemia Qualified Code(s): E78.00 - Pure hypercholesterolemia, unspecified; E78.0 - Pure hypercholesterolemia
--- NOTE | 2018-06-10 18:33 | ECG ---
Date Performed: 06/10/2018 Time Performed: 10:08:40 PTAGE: 72 years EKG: Sinus rhythm Possible anteroseptal infarct - age undetermined Generalized low QRS voltages Abnormal ECG PREVIOUS TRACING : 06/07/2018 05.18 Since the previous tracing, no significant change noted DOCTOR: Irwin Sánchez Interpretating Date/Time 06/10/2018 18:32:07
[2018-06-11 08:00] VITALS: RESP 16
[2018-06-11] MEDS: Amiodarone 200 MG Tablet PO SCH (08:31)
[2018-06-11] MEDS: Docusate Sodium 100 MG Capsule PO SCH (08:31)
[2018-06-11] MEDS: Lisinopril 5 MG Tablet PO SCH (08:32)
[2018-06-11] MEDS: Polyethylene Glycol 3350 17 GM Packet PO SCH (08:34)
[2018-06-11] MEDS: Multivitamin/Minerals Therapeutic Tablet PO SCH (08:37)
[2018-06-11] MEDS: Insulin NovoLOG Aspart Correctional Sugar Inj SQ SCH (08:41)
--- NOTE | 2018-06-11 11:20 | P.DS ---
Date of admission: 06/03/18 23:06 Primary care physician: UNKNOWN Brief History from admission: This is a 72-year-old male with a relatively unremarkable past medical history who is active and was in his usual state of health when he had sudden onset crushing substernal chest pain radiating to his left shoulder around 6 PM tonight. EMS was called. In the ambulance, he had a V. fib arrest and was emergently defibrillated. He was not intubated at that time and mental status returned to baseline. In the emergency department he was found to have an ST elevation myocardial infarction. He was emergently taken to the [facility]. He has multivessel disease with essentially left main equivalent with severe distal left main disease, 90% proximal LAD disease, 70-80% circumflex disease, and moderate RCA disease. He has an acute EF of 25-30% by left ventriculography. Decision was made to forego intervening on the lesions and placed intra-arterial balloon pump in favor of cardiothoracic surgical evaluation. I evaluated the patient on arrival to the CVICU. He is awake and alert. He states that his chest pain is significantly improved from precatheterization. He does state that his chest is sore from the short round of CPR he received in the ambulance. He is on a dopamine infusion at 8 mcg/kg/ min on my evaluation. IVP is 1:1. Augmented mean arterial pressures 111 mmHg. He does endorse mild nausea. Denies vomiting, diarrhea, abdominal pain. Denies fever, chills, cough, new sputum production. He states that he can walk 2-3 blocks without getting winded. He does state the climbing 2 flights of stairs would make him significantly short of breath. He has a remote history of smoking when he was a teenager, does drink 2-3 drinks a week. His only family history of coronary artery disease was his grandmother who he said may have had a heart attack when she was very old. Remainder of review systems is negative. DS: Medications - Discharge Medications Prescriptions: amiodarone 200 mg PO DAILY #14 tab aspirin 81 mg PO DAILY #90 tab atorvastatin 40 mg PO HS #90 tab carvedilol [Coreg] 3.125 mg PO BID #60 tab clopidogrel [Plavix] 75 mg PO DAILY #30 tab ferrous sulfate [FeroSul] 325 mg PO BID@1200,1700 #60 tab hydrocodone-acetaminophen 1 tab PO Q6H PRN #20 tab PRN Reason: Pain 5-10 [id number] [Thera M Plus (ferrous fumarat)] 1 tab PO DAILY # 30 tab DS: Summary Hospital Course: Mr. Vaca is a pleasant 72-year-old male with no significant cardiac history who was transferred to the hospital after he sustained a ventricular fibrillation cardiac arrest status post defibrillation and CPR. Patient was noted to have STEMI and underwent emergent cardiac catheterization by Dr. Tim. Coronary angiogram revealed moderate left main stenosis with associated critical LAD and circumflex disease. His LV EF was 25%. Patient underwent intra-aortic balloon pump placement and subsequently cardiothoracic surgery performed CABG 2 (HERNANDEZ-->LAD, SVG-->OM). Chest tubes were discontinued on 2017. Patient continued to do well. Repeat echo shows marked improvement of LV function to EF 50%. Spironolactone and SHIRLEY inhibitors were discontinued. Cardiothoracic surgery recommended discharge with Amiodarone for 2 weeks and Iron supplements for a month. We also continued pain medications as well as Aspirin, Plavix, Lipitor and beta mario alberto. Discussed with patient and his - all questions answered. Searched [employer] database. No narcotic pain medication found in the last two years. Will give patient [place] 5/325 Q6hrs for 5 days (#20). - Time Spent with Patient Total time spent providing and/or coordinating discharge services: Greater than 30 minutes - Quality: VTE Deep Vein Thrombosis/Pulmonary Embolism Present on Admission: No Exam Vital signs: Vital Signs 06/10/18 12:00 06/10/18 13:00 06/10/18 14:00 Temperature Pulse Rate 78 83 88 Respiratory Rate Blood Pressure Pulse Oximetry 06/10/18 15:00 06/10/18 16:00 06/10/18 17:00 Temperature 101.5 F H Pulse Rate 81 82 83 Respiratory Rate 16 Blood Pressure 116/58 L Pulse Oximetry 92 L 06/10/18 18:00 06/10/18 19:00 06/10/18 20:00 Temperature 99.3 F Pulse Rate 87 81 78 Respiratory Rate 16 Blood Pressure 120/59 L Pulse Oximetry 95 06/10/18 20:11 06/10/18 21:00 06/10/18 22:00 Temperature Pulse Rate 80 74 Respiratory Rate Blood Pressure Pulse Oximetry 93 L 06/10/18 23:00 06/11/18 00:00 06/11/18 01:00 Temperature 99.0 F Pulse Rate 71 70 75 Respiratory Rate 18 Blood Pressure 108/58 L Pulse Oximetry 94 L 06/11/18 02:00 06/11/18 03:00 06/11/18 04:00 Temperature 97.8 F Pulse Rate 74 75 77 Respiratory Rate 16 Blood Pressure 106/60 Pulse Oximetry 96 06/11/18 05:00 06/11/18 05:59 06/11/18 06:00 Temperature Pulse Rate 74 69 Respiratory Rate 14 Blood Pressure Pulse Oximetry 06/11/18 07:59 Temperature Pulse Rate 74 Respiratory Rate 16 Blood Pressure Pulse Oximetry 99 Intake & Output 06/10/18 06/11/18 06/11/18 18:59 06:59 18:59 Intake Total 920 / 920 960 / 960 Output Total 1100 / 1100 1200 / 1200 Balance -180 / -180 -240 / -240 Weight 73.5 kg Intake: Oral 920 / 920 960 / 960 Output: Urine 1100 / 1100 1200 / 1200 Other: Date of Last Bowel Movement 06/10/18 # Bowel Movements 2 Narrative: GENERAL: Alert, oriented 3, NAD. SKIN: Warm and dry. Prevent dressing is in place to chest (dressing will be discontinued by CV Surgery prior to discharge). HEAD: Normocephalic. EYES: No scleral icterus. No injection or drainage. NECK: Supple, trachea midline. No JVD or lymphadenopathy. CARDIOVASCULAR: Regular rate and rhythm without murmurs, gallops, or rubs. RESPIRATORY: Breath sounds equal bilaterally. No accessory muscle use. GASTROINTESTINAL: Abdomen soft, non-tender, nondistended. MUSCULOSKELETAL: No cyanosis, or edema. BACK: Nontender without obvious deformity. No CVA tenderness. Results Procedures completed during hospitalization: 06/06/2018 1. Urgent Off-pump Coronary Artery Bypass Grafting x 2 with Left Internal Mammary Artery (HERNANDEZ) to Left Anterior Descending (LAD), reverse saphenous vein graft to Obtuse Marginal branch of the Left Circumflex artery 2. Left leg Endoscopic Vein [place] 3. Stabilization of sternal fracture 4. Intraoperative Vein Mapping. IABP placement on 06/04/2018. Cardiac cath 06/04/2018 1. At least moderate left main disease. 2. Severe disease of the proximal LAD and ostial first obtuse marginal. 3. Severely reduced left ventricular systolic function with estimated ejection fraction of 25%-30%. 4. Status post placement of an intraaortic balloon pump. Labs on day of discharge: Labs from last 24 hours 06/10/18 06/10/18 20:42 16:00 POC Glucose 126 H 113 H - Impressions ITS Impressions Venous Doppler Study 06/04/18 00:00 CONCLUSION: 1. No evidence of thrombus within either lower extremity. Limited visualization of the right and left iliac vein and common femoral veins secondary to overlying bandages and aortic pump placement. Carotid Doppler Study 06/04/18 09:43 CONCLUSION: Negative examination for a hemodynamically significant carotid stenosis. Alexis Brar MD FACR Lower Extremity Ultrasound 06/04/18 09:43 CONCLUSION: 1. Venous mapping as above Chest X-Ray 06/10/18 06:00 CONCLUSION: Removal of previous chest tubes and right central line without pneumothorax. Stable mild basilar airspace disease. Discharge Plan - Discharge Disposition Patient Disposition: /Home Health Service - Discharge Condition Condition: Critical - Discharge Order Discharge Orders: Discharge Order (Routine); Ordered 06/11/18 Ordered By: Maryan Salazar - Discharge Details Anticipated Discharge Date: 06/11/18 - Physicians Team Primary Care Provider: UNKNOWN, Attending Provider: Korin Huntley Other Providers: Joaquín Burns MD ; Korin Huntley MD ; [employer] ; Maryan Salazar DO ; [facility]
--- NOTE | 2018-06-11 13:09 | P.PNCV ---
- Note Subjective/Hospital Course: Pleasant 72-year-old gentleman with no prior identifiable cardiac history who presents with new onset chest pain. Patient called EMS and was being transferred to the hospital when he suffered a ventricular fibrillation arrest necessitating defibrillation and manual CPR. Following presentation he was noted to have an STEMI and underwent emergent cardiac catheterization by Dr. Tim. Coronary angiography revealed moderate left main stenosis with associated critical LAD and circumflex disease, with minimal nonobstructive right coronary artery lesions. This is in the setting of severe left ventricular dysfunction with estimated EF 25%. Intra-aortic balloon pump was placed, patient was begun on inotropic therapy and transferred to CVICU for further management. 06/05 Clinically and hemodynamically stable with IABP and Dobutamine support Exam - unchanged OR in am 06/06 : PREPROCEDURE DIAGNOSES 1. Severe Multi Vessel Coronary Artery Disease. 2. Acute myocardial infarction 3. Ventricular fibrillation arrest 4. Cardiogenic shock with IABP placement 5. Severe left ventricular dysfunction (EF 25%) 6. Inotropic support 7. Pulmonary insufficiency 8. Sternal fracture surgery: 1. Urgent Off-pump Coronary Artery Bypass Grafting x 2 with Left Internal Mammary Artery (HERNANDEZ) to Left Anterior Descending (LAD), reverse saphenous vein graft to Obtuse Marginal branch of the Left Circumflex artery 2. Left leg Endoscopic Vein [place] 3. Stabilization of sternal fracture 06/07 on nasal cannula IABP : 1:3 3am -5am tolerated well placed back on 1:3 for one hour this am / dobutamine decreased to 2.5mcq on nasal cannula, pain controlled , chest tube in place no air leak left fem rachel removed this am Right Fem IABP removed / see procedure note plan is to wean off dobutamine this afternoon, if BP tolerates 06/08 off all IV Inotrope on nasal cannula start low dose BB, then eval for SHIRLEY and spironolactone gentle diuresis pain control transfer to stepdown limited echo pending in am 06/09 pt on 2 liter nasal cannula consider low dose diuresis limited echo completed chest tube drained 60cc overnight and additional 110cc this am will eval later for possible removal start low dose SHIRLEY in am , start spironolactone today transfer to stepdown 06/10 repeat EF 50% will stop spironolactone, continue BB low grade temp last night, continue pulm toileting CXR stable / WBC stable 06/11 no further fevers on room air stable for discharge prevena dressing removed Objective: Vital Signs - 24 hr 06/10/18 14:00 06/10/18 15:00 06/10/18 16:00 Temperature 101.5 F H Pulse Rate 88 81 82 Respiratory Rate 16 Blood Pressure 116/58 L Pulse Oximetry 92 L 06/10/18 17:00 06/10/18 18:00 06/10/18 19:00 Temperature 99.3 F Pulse Rate 83 87 81 Respiratory Rate 16 Blood Pressure 120/59 L Pulse Oximetry 95 06/10/18 20:00 06/10/18 20:11 06/10/18 21:00 Temperature Pulse Rate 78 80 Respiratory Rate Blood Pressure Pulse Oximetry 93 L 06/10/18 22:00 06/10/18 23:00 06/11/18 00:00 Temperature 99.0 F Pulse Rate 74 71 70 Respiratory Rate 18 Blood Pressure 108/58 L Pulse Oximetry 94 L 06/11/18 01:00 06/11/18 02:00 06/11/18 03:00 Temperature 97.8 F Pulse Rate 75 74 75 Respiratory Rate 16 Blood Pressure 106/60 Pulse Oximetry 96 06/11/18 04:00 06/11/18 05:00 06/11/18 05:59 Temperature Pulse Rate 77 74 Respiratory Rate 14 Blood Pressure Pulse Oximetry 06/11/18 06:00 06/11/18 07:59 Temperature Pulse Rate 69 74 Respiratory Rate 16 Blood Pressure Pulse Oximetry 99 GENERAL: A&0 x 3 SKIN: Warm and dry. prevena dressing to chest HEAD: Normocephalic. EYES: No scleral icterus. No injection or drainage. NECK: Supple, trachea midline. No JVD or lymphadenopathy. CARDIOVASCULAR: Regular rate and rhythm without murmurs, gallops, or rubs. RESPIRATORY: Breath sounds equal bilaterally. No accessory muscle use. GASTROINTESTINAL: Abdomen soft, non-tender, nondistended. MUSCULOSKELETAL: No cyanosis, or edema. BACK: Nontender without obvious deformity. No CVA tenderness. Result Diagrams: 06/10/18 04:16 06/10/18 04:16 - Plan (1) ST elevation myocardial infarction (STEMI) (2) Ventricular tachyarrhythmia Plan: on amiodarone, no further arrhythmia (3) Hyperlipidemia Plan: on statin heart healthy diet (4) Severe left ventricular systolic dysfunction Plan: EF 25 % / repeat limited Echo results pending s/p Vfib arrest on amiodarone start SHIRLEY in am , start spironolactone on ASA coreg (5) S/P CABG x 2 Plan: ASA, statin , start BB OOB, ambulate nebs ezpap chest tube removed, CXR stable continue pulm toileting ok to dc home (6) Fever, low grade Plan: IS, acapella , continue nebs (1) ST elevation myocardial infarction (STEMI) Qualifiers: Involved coronary artery: LAD coronary artery Qualified Code(s): I21.02 - ST elevation (STEMI) myocardial infarction involving left anterior descending coronary artery (3) Hyperlipidemia Qualifiers: Hyperlipidemia type: pure hypercholesterolemia Qualified Code(s): E78.00 - Pure hypercholesterolemia, unspecified; E78.0 - Pure hypercholesterolemia
[2018-06-11 15:18] VITALS: BP 105/59; TEMP 98.4
[2018-06-11 15:22] VITALS: PULSE 76; O2SAT 95
== END 2018-06-11 13:27 | disposition home health service (06) ==
LOC: NEPE 22:55 → NEDA 23:06 → HCVI 23:45 → HCPC 06-09 13:38
PROVIDERS: ADMIT Thoracic Surgery (Cardiothoracic Vascular Surgery); ATTEND Thoracic Surgery (Cardiothoracic Vascular Surgery)